=== PATIENT | female | born 1950 | race Caucasian/White ===

== ENCOUNTER → 2017-09-30 12:01 | Outpatient (CLI) | payer MEDICARE, OTHER, SELFPAY ==
--- NOTE | 2017-09-30 12:06 | RAD_ITS ---
STUDY: X-RAY - THORACIC SPINE REASON FOR EXAM: Female, 67 years old. Thoracic pain TECHNIQUE: 2 view(s) of the thoracic spine were obtained. COMPARISON: None. FINDINGS: Normal kyphosis of the thoracic spine. There is no substantial scoliosis. Normal thoracic vertebrae and endplates. Normal disc space heights. The soft tissue structures are unremarkable. RAD/Thoracic Spine 3 Views IMPRESSION: Normal x-ray examination of the thoracic spine. No fractures. No acute disease. Electronically Signed: Dyllan Herron, at 4:45 EDT Tel , Service support ,
== END ==
PROVIDERS: Family Provider Family Medicine Geriatric Medicine; PCP Family Medicine Geriatric Medicine; Visit Provider Family Medicine Geriatric Medicine
DX: M54.6 Pain in thoracic spine (principal)
CPT/HCPCS: 72072

== ENCOUNTER → 2017-12-30 15:23 | Outpatient (CLI) | payer MEDICARE, OTHER, SELFPAY ==
--- NOTE | 2017-12-30 15:20 | LES_PTH ---
PATIENT: EPIFANIO BARRIGA LOC: [facility] U#:[id number] AGE/SX: 74/F ROOM: RE12/30/[address]: Dr. Montana Aly MD : 1950 BED: DIS: SPEC #: [id number] RECD: 12/31/17 10:13 STATUS: RHEA EBER #: [id number] RADHA: 12/30/17 15:[address]: Montana Aly Chi DEPT: SURGICAL PATHOLOGY RECD BY: Andre Chavarria Tissues: Skin of knee, NOS Procedures: Surgery Specimen Level IV HEADER OPERATION: Not noted PRE-OP DIAGNOSIS: Left leg behind knee TISSUE SUBMITTED: Left back of knee x1 MICROSCOPIC DIAGNOSIS Left knee lesion, biopsy: Invasive well differentiated squamous cell carcinoma, keratoanthomatous type, narrowly excised. See comment. Perineural invasion is not seen. SJ:marianne 01/01/18 COMMENT The tumor is present very close, <1 mm from the deep resection margin. Case has been reviewed in consultation with Dr. Saleem who concurs with the above diagnosis. IDC:AM MICROSCOPIC DESCRIPTION Slides are reviewed. GROSS DESCRIPTION Received is one container labeled with the patient's name and not further designated. The specimen consists of a piece of hester-brown skin measuring 1.1 x 0.7 x 0.2 cm. A hester-white nodule is noted measuring 0.5 x 0.5 cm. The specimen is inked and submitted entirely in one cassette. It will be sectioned at the time of embedding. / SJ:rg 12/31/17 TC:0 CPT: 93258
[2017-12-30 17:41] LABS: Absolute Lymphocyte Count 2.95 X10^3/ul (0.83-4.51); Absolute Neutrophil Count 3.6 X10^3/uL (2.0-7.7); Basophil# 0.05 X10^3/uL; Basophil% 0.7 % (0-1); Eosinophil# 0.22 X10^3/uL; Eosinophils% 2.9 % (0-5); Hematocrit 41.9 % (37-47); Hemoglobin 13.7 g/dl (12.0-15.0); Lymphocyte # 2.95 X10^3/ul (4.0); Lymphocyte % 39.5 % (19-41); Mean Corp Hgb Conc 32.7 g/gl (32-36); Mean Corpuscular Hgb 31.9 pg (27.0-32.0); Mean Corpuscular Volume 97.7 fL (81-99); Mean Platelet Vol. 9.5 fl (6.2-12.0); Neutrophil # 3.64 X10^3/uL (2.7-7.7); Neutrophil % 48.8 % (47-70); Platelet Count 350 K/mm3 (150-450); RBC Distribution Width CV 13.3 % (11.6-14.6); RBC Distribution Width SD 47.2 fl (35.1-43.9); Red Blood Count 4.29 M/mm3 (4.2-5.4); White Blood Count 7.5 K/mm3 (4.4-11.0)
[2017-12-30 17:42] LABS: POSITIVE COUNT NO; POSITIVE DIFFERENTIAL NO; POSITIVE MORPHOLOGY NO; Vitamin D,25 Hydroxy 33.2 ng/mL (29.95-100.01)
[2017-12-30 17:45] LABS: ALB/GLOB Ratio 0.9 RATIO (0.9-2.4); AST(SGOT) 19 U/L (15-37); Alanine Aminotransfer ALT/SGPT 25 U/L (13-56); Albumin, Serum 3.8 g/dL (3.2-5.0); Alkaline Phosphatase 60 U/L (45-117); Anion Gap 7 (5-15); BUN 14 mg/dL (7-18); BUN/Creat Ratio 21.7 RATIO (10-20); Calcium,Total 8.5 mg/dL (8.5-10.1); Chloride 103 mmol/L (98-107); Creatinine, Serum 0.64 mg/dL (0.55-1.02); EST Glomerular Filtration Rate 98 mL/min (>60); Est Glom Filt Rate - Afr Amer 118 mL/min (>60); Globulin 4.1 g/dL (2.2-4.2); Glucose 88 mg/dL (74-106); Potassium 3.9 mmol/L (3.5-5.1); Protein, Total 7.9 g/dL (6.4-8.2); Sodium Level 140 mmol/L (136-145); Thyroid Stim Hormone (TSH) 2.93 uIU/mL (0.358-3.74)
[2018-01-01 11:36] LABS: Hep C Antibodies 0.1 s/co ratio (0.0-0.9)
== END ==
PROVIDERS: Family Provider Family Medicine Geriatric Medicine; PCP Family Medicine Geriatric Medicine; Visit Provider Family Medicine Geriatric Medicine
DX: C44.729 Squamous cell carcinoma of skin of left lower limb, including hip (principal); E55.9 Vitamin D deficiency, unspecified; R53.83 Other fatigue; Z13.89 Encounter for screening for other disorder; D17.9 Benign lipomatous neoplasm, unspecified
CPT/HCPCS: 36415; 80053; 82306; 84443; 85025; 86803; 88305

== ENCOUNTER → 2018-03-15 14:15 | Outpatient (CLI) | payer MEDICARE, OTHER, SELFPAY ==
[2018-03-19 15:05] LABS: Lyme IgG P18 Ab Absent (.); Lyme IgG P23 Ab Absent (.); Lyme IgG P28 Ab Absent (.); Lyme IgG P30 Ab Absent (.); Lyme IgG P39 Ab Absent (.); Lyme IgG P41 Ab Absent (.); Lyme IgG P45 Ab Absent (.); Lyme IgG P58 Ab Present (.); Lyme IgG P66 Ab Absent (.); Lyme IgG P93 Ab Present (.); Lyme IgM P23 Ab Present (.); Lyme IgM P39 Ab Absent (.); Lyme IgM P41 Ab Absent (.)
[2018-03-20 14:02] LABS: Lyme IgG WB Interpretation Negative (.); Lyme IgM WB Interpretation Negative (.)
== END ==
LOC: POLAB3 14:16 → PSN 14:28
PROVIDERS: Family Provider Family Medicine Geriatric Medicine; PCP Family Medicine Geriatric Medicine; Referring Provider Family Medicine Geriatric Medicine; Visit Provider Family Medicine Geriatric Medicine
DX: R50.9 Fever, unspecified (principal)
CPT/HCPCS: 36415; 86617; 87633

== ENCOUNTER → 2018-10-05 11:35 | Outpatient (CLI) | payer MEDICARE, OTHER, SELFPAY ==
[2017-10-08 10:15] VITALS: BMI 24.3
== END ==
PROVIDERS: Family Provider Family Medicine Geriatric Medicine; PCP Family Medicine Geriatric Medicine; Referring Provider Family Medicine Geriatric Medicine; Visit Provider Family Medicine Geriatric Medicine
DX: R50.9 Fever, unspecified (principal)
CPT/HCPCS: 87633

== ENCOUNTER → 2019-01-03 12:22 | Outpatient (CLI) | payer MEDICARE, OTHER, SELFPAY ==
[2019-01-03 12:38] LABS: Absolute Lymphocyte Count 2.66 X10^3/uL (0.83-4.51); Absolute Neutrophil Count 2.5 X10^3/uL (2.0-7.7); Basophil# 0.04 X10^3/uL; Basophil% 0.7 % (0-1); Eosinophil# 0.21 X10^3/uL; Eosinophils% 3.6 % (0-5); Hematocrit 42.9 % (37-47); Hemoglobin 14.1 g/dL (12.0-15.0); Lymphocyte # 2.66 X10^3/ul (4.0); Lymphocyte % 45.5 % (19-41); Mean Corp Hgb Conc 32.9 g/dL (32-36); Mean Corpuscular Hgb 31.8 pg (27.0-32.0); Mean Corpuscular Volume 96.8 fL (81-99); Mean Platelet Vol. 8.6 fl (6.2-12.0); Monocyte# 0.45 X10^3/uL; Monocyte% 7.7 % (0-10); NRBC Flagged by Analyzer 0 % (0-5); Neutrophil # 2.47 X10^3/uL (2.7-7.7); Neutrophil % 42.3 % (47-70); Platelet Count 325 K/mm3 (150-450); Red Blood Count 4.43 M/mm3 (4.2-5.4); White Blood Count 5.8 K/mm3 (4.4-11.0)
[2019-01-03 13:11] LABS: Vitamin D,25 Hydroxy 35.2 ng/mL (29.95-100.01)
[2019-01-03 13:21] LABS: ALB/GLOB Ratio 0.9 RATIO (0.9-2.4); AST(SGOT) 15 U/L (15-37); Alanine Aminotransfer ALT/SGPT 19 U/L (13-56); Albumin, Serum 3.7 g/dL (3.2-5.0); Alkaline Phosphatase 65 U/L (45-117); Anion Gap 7 (5-15); BUN 15 mg/dL (7-18); BUN/Creat Ratio 22.1 RATIO (10-20); Calcium,Total 8.9 mg/dL (8.5-10.1); Chloride 109 mmol/L (98-107); Creatinine, Serum 0.68 mg/dL (0.55-1.02); EST Glomerular Filtration Rate 91 mL/min (>60); Est Glom Filt Rate - Afr Amer 111 mL/min (>60); Globulin 4.2 g/dL (2.2-4.2); Glucose 93 mg/dL (74-106); Potassium 4.3 mmol/L (3.5-5.1); Protein, Total 7.9 g/dL (6.4-8.2); Sodium Level 143 mmol/L (136-145); Thyroid Stim Hormone (TSH) 2.55 uIU/mL (0.358-3.74)
== END ==
PROVIDERS: Family Provider Family Medicine Geriatric Medicine; PCP Family Medicine Geriatric Medicine; Visit Provider Family Medicine Geriatric Medicine
DX: I10 Essential (primary) hypertension (principal); E55.9 Vitamin D deficiency, unspecified
CPT/HCPCS: 36415; 80053; 82306; 84443; 85025

== ENCOUNTER → 2019-01-25 15:10 | Outpatient (CLI) | payer MEDICARE, OTHER, SELFPAY ==
--- NOTE | 2019-01-25 15:13 | BI_ITS ---
MAMMOGRAPHY - BILATERAL SCREENING REASON FOR EXAM: Female, 68 years old. Routine annual screening examination. PERTINENT HISTORY: Non-contributory. TECHNIQUE: Digital bilateral breast doni (3D mammographic acquisition) in the CC and MLO projections. 2-D mediolateral oblique (MLO) and craniocaudad (CC) views of both breasts were obtained. CAD: Full Field Digital Mammography with Computer Added Detection was performed. COMPARISON: Comparison is made with prior study dated June 22, 2014 and December 29, 2009. FINDINGS: Breast Composition: The breasts are heterogeneously dense, which may obscure small masses. There are no dominant masses or suspicious calcifications. No other significant abnormalities are identified. There has been no significant change since the prior study. BI/SCREEN MAMM (CAD) W/DONI BILAT IMPRESSION: Stable bilateral screening mammogram. Yearly follow-up mammogram recommended. (A) ASSESSMENT CATEGORY: BIRADS Category 1: Negative. A letter regarding these results will be sent to the patient by the facility within 30 days. Approximately 10% of breast cancers are not detected by mammography. A normal mammogram should not delay biopsy of a clinically suspicious abnormality. [id number] Electronically Signed: Yao Ji, at 16:01 EDT , Service support ,
== END ==
PROVIDERS: Family Provider Family Medicine Geriatric Medicine; PCP Family Medicine Geriatric Medicine; Referring Provider Family Medicine Geriatric Medicine; Visit Provider Family Medicine Geriatric Medicine
DX: Z12.31 Encounter for screening mammogram for malignant neoplasm of breast (principal); Z78.0 Asymptomatic menopausal state
CPT/HCPCS: 77063; 77067

== ENCOUNTER → 2020-03-26 16:02 | Outpatient (CLI) | payer MEDICARE, OTHER, SELFPAY ==
[2017-10-08 10:15] VITALS: BMI 24.3
[2020-03-26 17:01] LABS: Absolute Lymphocyte Count 2.78 X10^3/uL (0.83-4.51); Absolute Neutrophil Count 2.7 X10^3/uL (2.0-7.7); Basophil# 0.05 X10^3/uL; Basophil% 0.8 % (0-1); Eosinophil# 0.15 X10^3/uL; Eosinophils% 2.5 % (0-5); Hematocrit 40.6 % (37-47); Hemoglobin 13.2 g/dL (12.0-15.0); Lymphocyte # 2.78 X10^3/ul (4.0); Lymphocyte % 45.4 % (19-41); Mean Corp Hgb Conc 32.5 g/dL (32-36); Mean Corpuscular Volume 95.3 fL (81-99); Mean Platelet Vol. 9.1 fl (6.2-12.0); Monocyte# 0.48 X10^3/uL; Monocyte% 7.8 % (0-10); NRBC Flagged by Analyzer 0 % (0-5); Neutrophil # 2.65 X10^3/uL (2.7-7.7); Neutrophil % 43.3 % (47-70); Platelet Count 347 K/mm3 (150-450); RBC Distribution Width CV 12.2 % (11.6-14.6); RBC Distribution Width SD 42.5 fl (35.1-43.9); Red Blood Count 4.26 M/mm3 (4.2-5.4); White Blood Count 6.1 K/mm3 (4.4-11.0)
[2020-03-26 17:29] LABS: ALB/GLOB Ratio 0.9 RATIO (0.9-2.4); AST(SGOT) 19 U/L (15-37); Alanine Aminotransfer ALT/SGPT 29 U/L (13-56); Albumin, Serum 3.6 g/dL (3.2-5.0); Alkaline Phosphatase 82 U/L (45-117); Anion Gap 7 (5-15); BUN 19 mg/dL (7-18); BUN/Creat Ratio 26.1 RATIO (10-20); Calcium,Total 8.7 mg/dL (8.5-10.1); Chloride 104 mmol/L (98-107); Creatinine, Serum 0.73 mg/dL (0.55-1.02); EST Glomerular Filtration Rate 84 mL/min (>60); Est Glom Filt Rate - Afr Amer 102 mL/min (>60); Globulin 4.1 g/dL (2.2-4.2); Glucose 90 mg/dL (74-106); Potassium 3.8 mmol/L (3.5-5.1); Protein, Total 7.7 g/dL (6.4-8.2); Sodium Level 139 mmol/L (136-145); Thyroid Stim Hormone (TSH) 4.47 uIU/mL (0.358-3.74)
== END ==
PROVIDERS: PCP Family Medicine Geriatric Medicine; Visit Provider Family Medicine Geriatric Medicine
DX: I10 Essential (primary) hypertension (principal); E55.9 Vitamin D deficiency, unspecified
CPT/HCPCS: 36415; 80053; 82306; 84443; 85025

== ENCOUNTER 2020-04-02 14:53 | Emergency (ER) | payer MEDICARE, OTHER, SELFPAY ==
[2020-04-02 14:53] VITALS: BP 152/83; PULSE 93; RESP 22; TEMP 36.1; O2SAT 97; BMI 25.2
--- NOTE | 2020-04-02 16:40 | RAD_ITS ---
STUDY: X-RAY CHEST REASON FOR EXAM: Female, 69 years old. COUGH, SOB, CHEST PAIN AND CONGESTION TECHNIQUE: Single AP portable view of the chest. COMPARISON: 12/16/2013 FINDINGS: The lungs are clear and expanded. There is no demonstrated pleural abnormality. Normal size heart. Normal mediastinum and omari. Normal visualized pulmonary arteries. Normal visualized aortic arch and descending thoracic aorta. Normal visualized thoracic spine. Normal visualized ribs, clavicles, and shoulders. There is no demonstrated abnormality of the visualized soft tissue structures of the upper abdomen. RAD/Chest 1 View (Portable) IMPRESSION: Normal x-ray examination of the chest. Electronically Signed: Andre Frederick MD at 17:01 EST Tel , Service support ,
--- NOTE | 2020-04-02 16:41 | ED.VIS.GEN ---
History of Present Illness Chief Complaint: Shortness of Breath Informant: Patient Narrative: Patient states on Thursday she began to have a runny nose. She felt better on Thursday but today woke up feeling wheezing. She has had bronchitis intermittently in the past that has caused her to wheeze. Her tested negative for coronavirus and saw their PCP today was diagnosed with bronchitis. She denies any fevers. No rashes vomiting or diarrhea. No Known underlying lung conditions per the patient and she is a non-smoker. Past Medical History - Allergies and Home Meds Allergies/Adverse Reactions: Allergies No Known Allergies Allergy (Verified 03/01/16 11:34) Primary Care Physician: Montana Aly Chi, MD [Primary Care Provider] - Surgical History: noncontributory Lives: Spouse/ Significant Other Smoking Status: Former smoker Drugs: None Review of Systems General: Denies: Chills, Fever, Sweats Eyes: Denies: Visual changes - bilaterally, Diplopia ENT: Reports: Rhinorrhea. Denies: Sore throat Cardiovascular: Denies: Chest pain, Palpitations Respiratory: Reports: Dyspnea, Cough. Denies: Dyspnea on exertion Gastrointestinal: Denies: Abdominal pain, Nausea, Vomiting, Diarrhea, Melena, Hematochezia Genitourinary: Denies: Dysuria, Hematuria, Frequency Musculoskeletal: Denies: Back pain, Extremity Pain Skin: Denies: Rash, Wounds Neurological: Denies: Headache, Weakness, Numbness Physical Exam Vital Signs/Narrative: Vital Signs Temp Pulse Resp BP Pulse Ox 04/02/20 14:53 97 F L 93 22 H 152/83 H 97 Inital Vital Signs reviewed: Yes General: Well nourished, Well developed, No Acute Distress Head: Normocephalic, Atraumatic Eyes: Perrl, EOMI ENT: Moist mucous membranes, Nasal congestion Neck: Supple, Nontender Cardiovascular: Regular rate, Regular rhythm, No murmurs Respiratory: No distress, Chest nontender, Rhonchi, Wheezing Abdomen: Soft, Nontender, Nondistended, Normal bowel sounds Back: Nontender, Normal Inspection Extremities: Nontender, No edema Skin: Normal color, No rash Neurological: Alert, Oriented x3, Cranial nerves II-XII grossly intact, Normal Strength, Normal Sensation Psychological: Normal affect, Normal Mood Diagnostic/Tx/Re-eval - Medical Decision Making X-ray survey shows no obvious infiltrate. She received 2 DuoNeb's. Start her on an albuterol MDI, azithromycin, and a short course of prednisone. We swabbed her for coronavirus and respiratory panel. Follow-up with primary care if not improving ED Disposition - Plan for ED Patient: Disposition: Home or Assisted Living Diagnosis: Bronchitis, acute, with bronchospasm Instructions: Acute Bronchitis Prescriptions: predniSONE tablet 60 mg PO DAILY #15 tab Prescription Printed Albuterol Inhaler [Ventolin Hfa] 2 puff INHALATION Q4H PRN PRN #1 inhaler PRN Reason: Wheezing Prescription Printed Azithromycin [Zithromax Z-Romie] 250 mg PO UD #1 box Prescription Printed Referrals: Montana Aly Chi, MD [Primary Care Provider] - 1 Week if not improving
[2020-04-02 17:02] VITALS: BP 162/90; PULSE 85; RESP 18; TEMP 36.1; O2SAT 95
[2020-04-02] MEDS: Albuterol 2.5 MG/3 ML VIAL.NEB. INHALATION (17:03)
[2020-04-02] MEDS: Ipratropium/Albuterol Sulfate 3 ML AMPUL.NEB INHALATION (17:03)
== END 2020-04-02 17:22 | disposition home or self-care (01) ==
PROVIDERS: Emergency Provider Emergency Medicine; PCP Family Medicine Geriatric Medicine
DX: J20.9 Acute bronchitis, unspecified (principal); Z79.899 Other long term (current) drug therapy; Z87.891 Personal history of nicotine dependence
CPT/HCPCS: 71045; 87633; 87635; 99282; U0003

== ENCOUNTER → 2021-03-27 14:22 | Outpatient (CLI) | payer MEDICARE, OTHER, SELFPAY ==
[2021-03-27 17:31] LABS: Absolute Lymphocyte Count 2.76 X10^3/uL (0.83-4.51); Absolute Neutrophil Count 3.2 X10^3/uL (2.0-7.7); Basophil# 0.05 X10^3/uL; Basophil% 0.7 % (0-1); Eosinophil# 0.18 X10^3/uL; Eosinophils% 2.7 % (0-5); Hematocrit 40.8 % (37-47); Hemoglobin 13.4 g/dL (12.0-15.0); Lymphocyte # 2.76 X10^3/ul (0.83-4.51); Lymphocyte % 40.8 % (19-41); Mean Corp Hgb Conc 32.8 g/dL (32-36); Mean Corpuscular Hgb 31.5 pg (27.0-32.0); Mean Platelet Vol. 9.2 fl (6.2-12.0); Monocyte# 0.54 X10^3/uL; NRBC Flagged by Analyzer 0 % (0-5); Neutrophil # 3.22 X10^3/uL (2.7-7.7); Neutrophil % 47.5 % (47-70); Platelet Count 355 K/mm3 (150-450); RBC Distribution Width CV 12.3 % (11.6-14.6); RBC Distribution Width SD 43.2 fl (35.1-43.9); Red Blood Count 4.25 M/mm3 (4.2-5.4); White Blood Count 6.8 K/mm3 (4.4-11.0)
[2021-03-27 17:45] LABS: Vitamin D,25 Hydroxy 36.6 ng/mL
[2021-03-27 18:03] LABS: ALB/GLOB Ratio 0.8 RATIO (0.9-2.4); AST(SGOT) 20 U/L (15-37); Alanine Aminotransfer ALT/SGPT 39 U/L (13-56); Albumin, Serum 3.5 g/dL (3.2-5.0); Alkaline Phosphatase 78 U/L (45-117); Anion Gap 7 (5-15); BUN 17 mg/dL (7-18); BUN/Creat Ratio 23.9 RATIO (10-20); Chloride 104 mmol/L (98-107); Creatinine, Serum 0.71 mg/dL (0.55-1.02); EST Glomerular Filtration Rate 86 mL/min (>60); Est Glom Filt Rate - Afr Amer 104 mL/min (>60); Globulin 4.2 g/dL (2.2-4.2); Glucose 94 mg/dL (74-106); Potassium 3.9 mmol/L (3.5-5.1); Protein, Total 7.7 g/dL (6.4-8.2); Sodium Level 139 mmol/L (136-145); Thyroid Stim Hormone (TSH) 4.52 uIU/mL (0.358-3.74)
== END ==
PROVIDERS: PCP Family Medicine Geriatric Medicine; Visit Provider Family Medicine Geriatric Medicine
DX: I10 Essential (primary) hypertension (principal); E55.9 Vitamin D deficiency, unspecified
CPT/HCPCS: 36415; 80053; 82306; 84443; 85025

== ENCOUNTER → 2021-03-28 14:46 | Outpatient (CLI) | payer MEDICARE, OTHER, SELFPAY ==
--- NOTE | 2021-03-28 14:50 | BI_ITS ---
MAMMOGRAPHY - BILATERAL SCREENING REASON FOR EXAM: Female, 70 years old. Routine annual screening examination. PERTINENT HISTORY: Non-contributory. TECHNIQUE: Digital bilateral breast doni (3D mammographic acquisition) in the CC and MLO projections. 2-D mediolateral oblique (MLO) and craniocaudad (CC) views of both breasts were obtained. CAD: Full Field Digital Mammography with Computer Added Detection was performed. COMPARISON: Comparison is made with prior examination of 01/25/2019 and 06/22/2014. FINDINGS: Breast Composition: The breasts are heterogeneously dense, which may obscure small masses. There are no dominant masses or suspicious calcifications. Stable benign appearing bilateral axillary. No other significant abnormalities are identified. There has been no significant change since the prior study. BI/SCRN MAMM (CAD)W/DONI BILAT IMPRESSION: Stable bilateral screening mammogram. Yearly follow-up mammogram recommended. (A) ASSESSMENT CATEGORY: BIRADS Category 2: Benign. A letter regarding these results will be sent to the patient by the facility within 30 days. Approximately 10% of breast cancers are not detected by mammography. A normal mammogram should not delay biopsy of a clinically suspicious abnormality. [id number] Electronically Signed: Yao Ji MD at 15:35 EDT , Service support ,
== END ==
PROVIDERS: PCP Family Medicine Geriatric Medicine; Visit Provider Family Medicine Geriatric Medicine
DX: Z12.31 Encounter for screening mammogram for malignant neoplasm of breast (principal)
CPT/HCPCS: 77063; 77067

== ENCOUNTER → 2022-02-06 | Outpatient (CLI) | payer MEDICARE, OTHER, SELFPAY ==
--- NOTE | 2022-02-06 10:20 | RAD_ITS ---
EXAM: XR LEFT KNEE COMPLETE, 4 OR MORE VIEWS CLINICAL INDICATION: KNEE PAIN TECHNIQUE: Four or more views of the left knee. This report was created using [employer] report generation technology. COMPARISON: None. FINDINGS: BONES/JOINTS: Unremarkable. No acute fracture. No subluxation. Normal alignment. Preservation of the joint space. No sclerotic or destructive changes observed. SOFT TISSUES: Unremarkable. No soft tissue swelling or gas. No radiopaque foreign body. RAD/Knee 4 or More Views IMPRESSION: Negative left knee x-rays. Electronically Signed: Francisco Javier Chew MD at 2:53 EDT ,
== END | disposition home or self-care (01) ==
LOC: RAD 10:13
PROVIDERS: PCP Family Medicine Geriatric Medicine; Referring Provider Family Medicine Geriatric Medicine; Visit Provider Family Medicine Geriatric Medicine
DX: M25.562 Pain in left knee (principal)
CPT/HCPCS: 73564

== ENCOUNTER → 2022-02-14 | Outpatient (CLI) | payer MEDICARE, OTHER, SELFPAY | END | disposition home or self-care (01) | LOC: PSN 12:19 | PROVIDERS: PCP Family Medicine Geriatric Medicine; Referring Provider Family Medicine Geriatric Medicine; Visit Provider Family Medicine Geriatric Medicine | DX: R68.83 Chills (without fever) (principal) | CPT/HCPCS: 87635; 87804; 87807; C9803; U0003; U0005 ==

== ENCOUNTER → 2022-04-01 | Outpatient (CLI) | payer MEDICARE, OTHER, SELFPAY ==
[2022-04-01 17:19] LABS: Absolute Lymphocyte Count 3.29 X10^3/uL (0.83-4.51); Basophil# 0.03 X10^3/uL; Basophil% 0.4 % (0-1); Eosinophil# 0.17 X10^3/uL; Eosinophils% 2.1 % (0-5); Hematocrit 41.1 % (37-47); Hemoglobin 13.4 g/dL (12.0-15.0); Lymphocyte # 3.29 X10^3/ul (0.83-4.51); Lymphocyte % 40.2 % (19-41); Mean Corp Hgb Conc 32.6 g/dL (32-36); Mean Corpuscular Hgb 30.9 pg (27.0-32.0); Mean Corpuscular Volume 94.9 fL (81-99); Mean Platelet Vol. 9.4 fl (6.2-12.0); Monocyte# 0.65 X10^3/uL; Monocyte% 7.9 % (0-10); NRBC Flagged by Analyzer 0 % (0-5); Neutrophil # 4.02 X10^3/uL (2.7-7.7); Neutrophil % 49.2 % (47-70); Platelet Count 387 K/mm3 (150-450); RBC Distribution Width CV 12.8 % (11.6-14.6); Red Blood Count 4.33 M/mm3 (4.2-5.4); White Blood Count 8.2 K/mm3 (4.4-11.0)
[2022-04-01 17:34] LABS: Vitamin D,25 Hydroxy 37.6 ng/mL
[2022-04-01 17:49] LABS: ALB/GLOB Ratio 0.9 RATIO (0.9-2.4); AST(SGOT) 14 U/L (15-37); Alanine Aminotransfer ALT/SGPT 29 U/L (13-56); Albumin, Serum 3.5 g/dL (3.2-5.0); Alkaline Phosphatase 62 U/L (45-117); Anion Gap 8 (5-15); BUN 20 mg/dL (7-18); BUN/Creat Ratio 32.9 RATIO (10-20); Calcium,Total 8.4 mg/dL (8.5-10.1); Chloride 105 mmol/L (98-107); Creatinine, Serum 0.61 mg/dL (0.55-1.02); EST Glomerular Filtration Rate 103 mL/min (>60); Est Glom Filt Rate - Afr Amer 125 mL/min (>60); Glucose 91 mg/dL (74-106); Potassium 3.9 mmol/L (3.5-5.1); Protein, Total 7.5 g/dL (6.4-8.2); Sodium Level 140 mmol/L (136-145); Thyroid Stim Hormone (TSH) 4.69 uIU/mL (0.358-3.74)
== END | disposition home or self-care (01) ==
LOC: POLAB3 14:20
PROVIDERS: PCP Family Medicine Geriatric Medicine; Visit Provider Family Medicine Geriatric Medicine
DX: R53.83 Other fatigue (principal); E55.9 Vitamin D deficiency, unspecified
CPT/HCPCS: 36415; 80053; 82306; 84443; 85025

== ENCOUNTER → 2022-06-18 | Outpatient (CLI) | payer MEDICARE, OTHER, SELFPAY ==
[2022-06-18 17:57] LABS: Thyroid Stim Hormone (TSH) 2.62 uIU/mL (0.358-3.74)
== END | disposition home or self-care (01) ==
LOC: LAB.FUTURE 16:07 → POLAB3 16:08
PROVIDERS: PCP Family Medicine Geriatric Medicine; Visit Provider Family Medicine Geriatric Medicine
DX: E03.9 Hypothyroidism, unspecified (principal)
CPT/HCPCS: 36415; 84443

== ENCOUNTER → 2022-10-07 | Outpatient (CLI) | payer MEDICARE, OTHER, SELFPAY | END | disposition home or self-care (01) | PROVIDERS: PCP Family Medicine Geriatric Medicine; Referring Provider Family Medicine Geriatric Medicine; Visit Provider Family Medicine Geriatric Medicine | DX: R68.83 Chills (without fever) (principal); Z20.822 Contact with and (suspected) exposure to COVID-19 | CPT/HCPCS: 87635; 87804; 87807; C9803; U0005 ==

== ENCOUNTER → 2023-04-09 | Outpatient (CLI) | payer MEDICARE, OTHER, SELFPAY ==
[2023-04-09 14:54] LABS: Absolute Lymphocyte Count 3.29 X10^3/uL (0.83-4.51); Basophil# 0.04 X10^3/uL; Basophil% 0.5 % (0-1); Eosinophil# 0.11 X10^3/uL; Eosinophils% 1.4 % (0-5); Hematocrit 41.7 % (37-47); Hemoglobin 13.4 g/dL (12.0-15.0); Lymphocyte # 3.29 X10^3/ul (0.83-4.51); Mean Corp Hgb Conc 32.1 g/dL (32-36); Mean Corpuscular Hgb 31.1 pg (27.0-32.0); Mean Corpuscular Volume 96.8 fL (81-99); Mean Platelet Vol. 8.9 fl (6.2-12.0); Monocyte% 7.5 % (0-10); NRBC Flagged by Analyzer 0 % (0-5); Neutrophil # 3.97 X10^3/uL (2.7-7.7); Neutrophil % 49.4 % (47-70); Platelet Count 373 K/mm3 (150-450); RBC Distribution Width CV 12.5 % (11.6-14.6); RBC Distribution Width SD 44.9 fl (35.1-43.9); Red Blood Count 4.31 M/mm3 (4.2-5.4)
[2023-04-09 15:16] LABS: ALB/GLOB Ratio 0.9 RATIO (0.9-2.4); AST(SGOT) 16 U/L (15-37); Alanine Aminotransfer ALT/SGPT 26 U/L (13-56); Albumin, Serum 3.6 g/dL (3.2-5.0); Alkaline Phosphatase 65 U/L (45-117); Anion Gap 5 (5-15); BUN 19 mg/dL (7-18); BUN/Creat Ratio 25.8 RATIO (10-20); Chloride 107 mmol/L (98-107); Creatinine, Serum 0.74 mg/dL (0.55-1.02); EST Glomerular Filtration Rate 82 mL/min (>60); Est Glom Filt Rate - Afr Amer 100 mL/min (>60); Globulin 4.2 g/dL (2.2-4.2); Glucose 96 mg/dL (74-106); Potassium 3.7 mmol/L (3.5-5.1); Protein, Total 7.8 g/dL (6.4-8.2); Sodium Level 141 mmol/L (136-145)
[2023-04-09 15:39] LABS: Vitamin D,25 Hydroxy 52.3 ng/mL
== END | disposition home or self-care (01) ==
PROVIDERS: PCP Family Medicine Geriatric Medicine; Visit Provider Family Medicine Geriatric Medicine
DX: R53.83 Other fatigue (principal); E55.9 Vitamin D deficiency, unspecified
CPT/HCPCS: 36415; 80053; 82306; 84443; 85025

== ENCOUNTER 2024-12-29 15:10 | Emergency (ER) | payer MEDICARE, OTHER, SELFPAY ==
[2024-12-29 15:10] VITALS: BP 125/72; PULSE 82; RESP 18; TEMP 36.3; O2SAT 98; BMI 21.7
--- OUTSIDE RECORDS SUMMARY | 2024-12-29 18:00 | XMS RPT_ITS | CCD ---
Author Organization [facility] Inform ion Partnership [facility] Care Team Providers Care Office Agent Name Role Phone Jermain, [place] Chi Attending Unavailable Jermain, [place] Chi Primary Care Unavailable Jermain, [place] Chi Referring Unavailable Jermain, [place] Chi Attending Unavailable Jermain, [place] Chi Primary Care Unavailable Jermain, [place] Chi Primary Care Unavailable Jermain, [place] Chi Attending Unavailable Medications Current Medications Medication Drug Class(es) Dates Sig (Normalized) Sig (Original) [id number] 200 actuat albuterol 0.09 mg/actuat metered dose inhaler (3 sources) beta2-Adrenergic Agonist Start: 04-02-2020 take 1 puff(s) by inhalation every four hours as needed Albuterol Sulfate Active 2 PUFF INHALATION EVERY 4 HOURS NEEDED April 02, 2020 12:00am with spacer azithromycin 250 mg oral tablet (3 sources) Macrolide Antimicrobial Start: 04-02-2020 take 2 tablets by mouth once daily, then take 1 tablet by mouth once daily Azithromycin Active 250 MG PO DIRECTED April 02, 2020 12:00am TAKE 2 TABLETS 1ST DAY THEN 1 TABLET DAILY FOR NEXT 4 DAYS. calcium carbonate 1250 mg / cholecalciferol 0.01 mg chewable tablet (3 sources) Vitamin D Start: 03-01-2016 Calcium Carbonate-Vitamin D3 (Calcium 500+D Tablet Chew) 1 EACH tablet,chewable Active 1 TABLET PO DAILY February 29, 2016 11:00pm Coconut Oil (3 sources) Start: 04-02-2020 Coconut Oil (Bulk) Active 100 GM MC DAILY April 02, 2020 12:00am Start: 04-02-2020 Coconut Oil (B ulk) Active 100 GM MC DAILY April 02, 2020 1:00am FLUoxetine 10 mg oral capsule (3 sources) Serotonin Reuptake Inhibitor Start: 03-01-2016 take 10 mg by mouth once daily Fluoxetine Active 10 MG PO DAILY February 29, 2016 11:00pm levothyroxine sodium 0.1 mg oral tablet (3 sources) l-Thyroxine Start: 03-01-2016 take 100 ug by mouth once daily Levothyroxine Active 100 MCG PO DAILY February 29, 2016 11:00pm pravastatin sodium 40 mg oral tablet (3 sources) HMG-CoA Reductase Inhibitor Start: 03-01-2016 take 40 mg by mouth at bedtime Pravastatin Active 40 MG PO AT BEDTIME February 29, 2016 11:00pm predniSONE 20 mg oral tablet (3 sources) Start: 04-02-2020 take 60 mg by mouth once daily Prednisone Active 60 MG PO DAILY April 02, 2020 12:00am Completed/Discontinued Medications Medication Drug Class(es) Dates Sig (Normalized) Sig (Original) amoxicillin 875 mg / clavulanate 125 mg oral tablet (3 sources) Penicillin-class Antibacterial Start: 03-01-2016 End: 10-08-2017 take 875 mg by mouth every twelve hours Amoxicillin-Pot Clavulanate Discontinued 875 MG PO Q12H February 29, 2016 11:00pm October 08, 2017 9:16am Problems Active Problems Problem Classification Problem Date Documented Da te Episodic/Chronic Acute bronchitis (3 sources) Acute bronchitis with bronchospasm; Translations: [Acute bronchitis, unspecified] 04-03-2020 Episodic Malaise and fatigue (1 source) Other fatigue; Translations: [Other fatigue] Onset: 04-15-2023 Episodic Other bone disease and musculoskeletal deformities (3 sources) Segmental and somatic dysfunction; Translations: [Segmental and somatic dysfunction of thoracic region] 10-08-2017 Episodic Thyroid disorders (1 source) Hypothyroidism, unspecified; Translations: [Hypothyroidism, unspecified] Onset: 07-01-2022 Chronic Past or Other Problems Problem Classification Problem Date Documented Da te Episodic/Chronic Residual codes; unclassified (1 source) Chills (without fever); Translations: [Chills (without fever)] Onset: 10-13-2022 Episodic Results Test Name Value Interpretation Reference Range Facility Absolute lymphocyte countOrd ered By: [place] Aly on 04-09-2023 Lymphocytes Auto (Unsp spec) [#/Vol] 3.29 10*3/uL 0.83-4.51 [facility] Basophil percentageOrdered B y: [place] Aly on 04-09-2023 Basophils/100 WBC (Bld) 0.5 % 0-1 [facility] Bilirubin [Mass/Vol] 0.70 mg/dL 0.20-1.00 [facility] Comment on above: For patients on eltr ombopag therapy, use of Dimension [place] TBIL is not recommended. Chloride [Moles/Vol] 107 mmol/L 98-107 [facility] Eosinophils/100 WBC (Bld) 1.4 % 0-5 [facility] Glucose [Mass/Vol] 96 mg/dL 74-106 [facility] Neutrophils (Bld) [#/Vol] 4.0 10*3/uL 2.0-7.7 [facility] Neutrophils/100 WBC (Bld) 49.4 % 47-70 [facility] Potassium [Moles/Vol] 3.7 mmol/L 3.5-5.1 [facility] Protein [Mass/Vol] 7.8 g/dL 6.4-8.2 [facility] Sodium [Moles/Vol] 141 mmol/L 136-145 [facility] WBC (Bld) [#/Vol] 8.0 10*3/uL 4.4-11.0 [facility] Blood erythrocytes count (nu mber/volume)Ordered By: [place] Aly on 04-09-2023 RBC (Bld) [#/Vol] 4.31 10*6/uL 4.2-5.4 [facility] Blood hemoglobin measurement (mass/volume)Ordered By: [place] Aly on 04-09-2023 Hemoglobin (Bld) [Mass/Vol] 13.4 g/dL 12.0-15.0 [facility] Blood lymphocytes/100 leukoc ytesOrdered By: [place] Aly on 04-09-2023 Lymphocytes/100 WBC (Bld) 41.0 % 19-41 [facility] Blood monocytes/100 leukocyt esOrdered By: Montana Palmerok on 04-09-2023 Monocytes/100 WBC (Bld) 7.5 % 0-10 [facility] Blood platelet mean volumeOr dered By: [place] Aly on 04-09-2023 Platelet mean volume (Bld) [Entitic vol] 8.9 fL 6.2-12.0 [facility] CBC W/Diff, Automatedon 03-25 Absolute Lymph 3.29 X10 3/uL Normal 0.83-4.51 [facility] Comment on above: Performed By: #### L 506.1000, L501.9520, L500.4050, L100.0100 #### [facility] [address] [place], [address] Absolute Neut 4.0 X10 3/uL Normal 2.0-7.7 [facility] Comment on above: Performed By: #### L 506.1000, L501.9520, L500.4050, L100.0100 #### [facility] [address] [place], [address] Basophils/100 WBC (Bld) 0.5 % Normal 0-1 [facility] Comment on above: Performed By: #### L 506.1000, L501.9520, L500.4050, L100.0100 #### [facility] [address] [place], [address] Eosinophils/100 WBC (Bld) 1.4 % Normal 0-5 [facility] Comment on above: Performed By: #### L 506.1000, L501.9520, L500.4050, L100.0100 #### [facility] [address] [place], [address] Erythrocyte distribution width (RBC) [Ratio] 12.5 % Normal 11.6-14.6 [facility] Comment on above: Performed By: #### L 506.1000, [id number], L500.4050, L100.0100 #### [facility] [address] [place], [address] Hematocrit (Bld) [Volume fraction] 41.7 % Normal 37-47 [facility] Comment on above: Performed By: #### L 506.1000, L501.9520, L500.4050, L100.0100 #### [facility] [address] [place], [address] Hemoglobin (Bld) [Mass/Vol] 13.4 g/dL Normal 12.0-15.0 [facility] Comment on above: Performed By: #### L 506.1000, L501.9520, L500.4050, L100.0100 #### [facility] [address] [place], [address] IG% 0.200 Normal 0.0-0.9 [facility] Comment on above: Result Comment: IG% - Immature Granulocytes (promyelocytes, myelocytes and metamyelocytes) > 1% indicates that a LEFT SHIFT is Present. Performed By: #### L 506.1000, L501.9520, L500.4050, L100.0100 #### [facility] [address] [place], [address] Lymphocytes/100 WBC (Bld) 41.0 % Normal 19-41 [facility] Comment on above: Performed By: #### L 506.1000, [id number], L500.4050, L100.0100 #### [facility] [address] [place], [address] MCH (RBC) [Entitic mass] 31.1 pg Normal 27.0-32.0 [facility] Comment on above: Performed By: #### L 506.1000, [id number], L500.4050, L100.0100 #### [facility] [address] [place], [address] MCHC (RBC) [Mass/Vol] 32.1 g/dL Normal 32-36 [facility] Comment on above: Performed By: #### L 506.1000, L501.9520, L500.4050, L100.0100 #### [facility] [address] [place], [address] MCV (RBC) [Entitic vol] 96.8 fL Normal 81-99 [facility] Comment on above: Performed By: #### L 506.1000, [id number], L500.4050, L100.0100 #### [facility] [address] [place], [address] Monocytes/100 WBC (Bld) 7.5 % Normal 0-10 [facility] Comment on above: Performed By: #### L 506.1000, [id number], L500.4050, L100.0100 #### [facility] [address] [place], [address] Neutrophils/100 WBC (Bld) 49.4 % Normal 47-70 [facility] Comment on above: Performed By: #### L 506.1000, [id number], L500.4050, L100.0100 #### [facility] [address] [place], [address] Nucleated RBC (Bld) [#/Vol] 0 10*3/uL Normal 0-5 [facility] Comment on above: Performed By: #### L 506.1000, L501.9520, L500.4050, L100.0100 #### [facility] [address] [place], [address] Platelet mean volume (Bld) [Entitic vol] 8.9 fL Normal 6.2-12.0 [facility] Comment on above: Performed By: #### L 506.1000, L501.9520, L500.4050, L100.0100 #### [facility] [address] [place], [address] Platelets (Bld) [#/Vol] 373 10*3/uL Normal 150-450 [facility] Comment on above: Performed By: #### L 506.1000, [id number], L500.4050, L100.0100 #### [facility] [address] [place], [address] RBC (Bld) [#/Vol] 4.31 10*6/uL Normal 4.2-5.4 [facility] Comment on above: Performed By: #### L 506.1000, [id number], L500.4050, L100.0100 #### [facility] [address] [place], [address] RDW SD 44.9 fl High 35.1-43.9 [facility] Comment on above: Performed By: #### L 506.1000, [id number], L500.4050, L100.0100 #### [facility] [address] [place], [address] WBC (Bld) [#/Vol] 8.0 10*3/uL Normal 4.4-11.0 [facility] Comment on above: Performed By: #### L 506.1000, [id number], L500.4050, L100.0100 #### [facility] [address] [facility] [place], [address] Comprehensive Metabolic [facility] 04-09-2023 Albumin [Mass/Vol] 3.6 g/dL Normal 3.2-5.0 [facility] Comment on above: Performed By: #### L 506.1000, [id number], L500.4050, L100.0100 #### [facility] [address] [place], [address] Albumin/Globulin [Mass ratio] 0.9 {ratio} Normal 0.9-2.4 [facility] Comment on above: Performed By: #### L 506.1000, [id number], L500.4050, L100.0100 #### [facility] [address] [place], [address] ALK P 65 U/L Normal 45-117 [facility] Comment on above: Performed By: #### L 506.1000, [id number], L500.4050, L100.0100 #### [facility] [address] [place], [address] ALT [Catalytic activity/Vol] 26 U/L Normal 13-56 [facility] Comment on above: Performed By: #### L 506.1000, [id number], L500.4050, L100.0100 #### [facility] [address] [place], [address] AST [Catalytic activity/Vol] 16 U/L Normal 15-37 [facility] Comment on above: Performed By: #### L 506.1000, [id number], L500.4050, L100.0100 #### [facility] [address] [place], [address] Bilirubin [Mass/Vol] 0.70 mg/dL Normal 0.20-1.00 [facility] Comment on above: Result Comment: For patients on eltrombopag therapy, use of Dimension [place] TBIL is not recommended. Performed By: #### L 506.1000, L501.9520, L500.4050, L100.0100 #### [facility] [address] [place], [address] BUN/CRE 25.8 RATIO High 10-20 [facility] Comment on above: Performed By: #### L 506.1000, [id number], L500.4050, L100.0100 #### [facility] [address] [place], [address] CA,Total 9.0 mg/dL Normal 8.5-10.1 [facility] Comment on above: Performed By: #### L 506.1000, [id number], L500.4050, L100.0100 #### [facility] [address] [place], [address] Chloride [Moles/Vol] 107 mmol/L Normal 98-107 [facility] Comment on above: Performed By: #### L 506.1000, [id number], L500.4050, L100.0100 #### [facility] [address] [place], [address] CO2 [Moles/Vol] 29.0 mmol/L Normal 21.0-32.0 [facility] Comment on above: Performed By: #### L 506.1000, L501.9520, L500.4050, L100.0100 #### [facility] [address] [place], [address] Creatinine [Mass/Vol] 0.74 mg/dL Normal 0.55-1.02 [facility] Comment on above: Result Comment: The validity of the calculated GFR GFRAA in patients over 70 years has not been determined. Clinical correlation is essential. Performed By: #### L 506.1000, L501.9520, L500.4050, L100.0100 #### [facility] [address] [place], [address] EST GFR - AA 100 mL/min Normal >60 [facility] Comment on above: Result Comment: Afri can French GFR Calc Performed By: #### L 506.1000, L501.9520, L500.4050, L100.0100 #### [facility] [address] [place], [address] GAP 5 Normal 5-15 [facility] Comment on above: Performed By: #### L 506.1000, L501.9520, L500.4050, L100.0100 #### [facility] [address] [place], [address] GFR/1.73 sq M.predicted among non-blacks MDRD (S/P/Bld) [Vol rate/Area] 82 mL/min/{1.73_m2} Normal >60 [facility] Comment on above: Result Comment: Non- GFR Calc Performed By: #### L 506.1000, L501.9520, L500.4050, L100.0100 #### [facility] [address] [place], [address] Globulin (S) [Mass/Vol] 4.2 g/dL Normal 2.2-4.2 [facility] Comment on above: Performed By: #### L 506.1000, L501.9520, L500.4050, L100.0100 #### [facility] [address] [place], [address] Glucose [Mass/Vol] 96 mg/dL Normal 74-106 [facility] Comment on above: Performed By: #### L 506.1000, L501.9520, L500.4050, L100.0100 #### [facility] [address] [place], [address] Potassium [Moles/Vol] 3.7 mmol/L Normal 3.5-5.1 [facility] Comment on above: Performed By: #### L 506.1000, L501.9520, L500.4050, L100.0100 #### [facility] [address] [place], [address] Sodium [Moles/Vol] 141 mmol/L Normal 136-145 [facility] Comment on above: Performed By: #### L 506.1000, L501.9520, L500.4050, L100.0100 #### [facility] [address] [place], [address] T PROT 7.8 g/dL Normal 6.4-8.2 [facility] Comment on above: Performed By: #### L 506.1000, L501.9520, L500.4050, L100.0100 #### [facility] [address] [place], [address] Urea nitrogen [Mass/Vol] 19 mg/dL High 7-18 [facility] Comment on above: Performed By: #### L 506.1000, L501.9580, L500.4050, L100.0100 #### [facility] [address] [place], [address] Determination of erythrocyte mean corpuscular volume (MCV)Ordered By: [place] Jermain on 04-09-2023 MCV (RBC) [Entitic vol] 96.8 fL 81-99 [facility] Hematocrit Auto (Bld) [Volum e fraction]Ordered By: [facility] on 04-09-2023 Hematocrit (Bld) [Volume fraction] 41.7 % 37-47 [facility] - Chemistry and C hemistry - challengeOrdered By: [facility] ALP [Catalytic activity/Vol] 65 U/L 45-117 [facility] ALT [Catalytic activity/Vol] 26 U/L 13-56 [facility] CO2 [Moles/Vol] 29.0 mmol/L 21.0-32.0 [facility] Globulin (S) [Mass/Vol] 4.2 g/dL 2.2-4.2 [facility] Urea nitrogen/Creatinine [Mass ratio] 25.8 mg/mg 10-20 [facility] - Hematology and Cell countsOrdered By: [facility]23 Erythrocyte distribution width (RBC) [Entitic vol] 44.9 fL 35.1-43.9 [facility] Erythrocyte distribution width (RBC) [Ratio] 12.5 % 11.6-14.6 [facility] Immature granulocytes/100 WBC (Bld) 0.200 % 0.0-0.9 [facility] Comment on above: IG% - Immature Granu locytes (promyelocytes, myelocytes and metamyelocytes) > 1% indicates that a LEFT SHIFT is Present. MCH (RBC) [Entitic mass] 31.1 pg 27.0-32.0 [facility] Nucleated RBC/100 WBC (Bld) [Ratio] 0 % 0-5 [facility] MCHC Auto (RBC) [Mass/Vol]Or dered By: [place] Aly on 04-09-2023 MCHC (RBC) [Mass/Vol] 32.1 g/dL 32-36 [facility] No Panel InformationOrdered By: [place] Aly on 04-09-2023 Estimated GFR (MDRD) Amer 100 mL/min >60 [facility] Comment on above: GFR Calc Estimated GFR (MDRD) Non-Af Amer 82 mL/min >60 [facility] Comment on above: Non- GFR Calc Thyroid Stimulating Hormone (TSH) 2.10 uIU/mL 0.358-3.74 [facility] Vitamin D 25-Hydroxy 52.3 ng/mL [facility] Comment on above: Vitamin D 25(OH) Sta tus Range Deficiency <20 ng/mL (50nmol/L) Insufficiency 20 - 30 ng/mL (50 - 75 nmol/L) Sufficiency 30 - 100 ng/mL (75 - 250 nmol/L) Toxicity >100 ng/mL (>250 nmol/L) Platelets bldOrdered By: [place] Aly on 04-09-2023 Platelets (Bld) [#/Vol] 373 10*3/uL 150-450 [facility] Serum or plasma albumin rowena urement (mass/volume)Ordered By: [place] Aly on 04-09-2023 Albumin [Mass/Vol] 3.6 g/dL 3.2-5.0 [facility] Serum or plasma albumin/glob ulin mass ratioOrdered By: [place] Aly on 04-09-2023 Albumin/Globulin [Mass ratio] 0.9 {ratio} 0.9-2.4 [facility] Serum or plasma calcium rowena urement (mass/volume)Ordered By: [place] Aly on 04-09-2023 Calcium [Mass/Vol] 9.0 mg/dL 8.5-10.1 [facility] Serum or plasma creatinine m easurement (mass/volume)Ordered By: [place] Aly 04-09-2023 Creatinine [Mass/Vol] 0.74 mg/dL 0.55-1.02 [facility] Comment on above: The validity of the calculated GFR & GFRAA in patients over 70 years has not been determined. Clinical correlation is essential. Serum or plasma urea nitroge n measurement (mass/volume)Ordered By: [place] Aly on 04-09-2023 Urea nitrogen [Mass/Vol] 19 mg/dL 7-18 [facility] Thin prep Papanicolaou smear with manual screeningOrdered By: [place] Jermain on 04-09-2023 Thin prep Papanicolaou smear with manual screening 16 U/L 15-37 [facility] Thin prep Papanicolaou smear with manual screening 5 5-15 [facility] Thyroid Stim Hormone (TSH)on 04-09-2023 TSH 2.10 uIU/mL Normal 0.358-3.74 [facility] Comment on above: Performed By: #### L 506.1000, L501.9520, L500.4050, L100.0100 #### [facility] [address] [place], [address] Vitamin D,25 Hydroxyon 04-09 Vitamin D 25-OH 52.3 ng/mL Normal [facility] Comment on above: Result Comment: Norma min D 25(OH) Status Range Deficiency <20 ng/mL (50nmol/L) Insufficiency 20 - 30 ng/mL (50 - 75 nmol/L) Sufficiency 30 - 100 ng/mL (75 - 250 nmol/L) Toxicity >100 ng/mL (>250 nmol/L) Performed By: #### L 506.1000, L501.9520, L500.4050, L100.0100 #### [facility] [address] [place], [place], [address] COVID 19, [facility](RT COLLECT )on 10-07-2022 SARS-CoV-2 (COVID-19) RNA SANDY+probe Ql (Unsp spec) Not detected Normal Not Detect [facility] Comment on above: Result Comment: Norm al Reference Range: Not Detected Method:(RT-PCR) real-time reverse transcriptase PCR [employer] Instrument *The Food and Drug Administration (FDA) has issued an Emergency Use Authorization (EAU) for the [employer] SARS-CoV-2 Assay for the rapid detection of the virus that causes COVID-19. This test has been validated, but the FDAs independent review of this validation is pending. *Negative results do not preclude infection and should not be used as the sole basis for treatment or patient management. Optimum specimen types and timing for peak viral levels during infections caused by SARS-CoV-2 have not been determined. Collection of multiple specimens from the same patient may be necessary to detect the virus. The possibility of a false negative result should be considered if the patient has clinical presentation or has had recent exposure. Performed By: #### M 100.6601, L3400.2405, M101.0101 #### [facility] [address] [place], [address] Influenza A+B (Rapid RUFINA)on 10-07-2022 FLU Negative test results should be confirmed with FLU PANEL MOLECULAR if indicated. Influenza A+B (Rapid RUFINA) Normal Reference Range: Negative Neha, RUFINA method Influenza Ag, Direct Presumptive NEGATIVE for Influenza A/B Antigen (See Note) Normal [facility] Comment on above: Performed By: #### M 100.6601, L3400.2405, M101.0101 #### [facility] [address] [place], [address] RSV Ag (Rapid RUFINA)on 023 RSV Ag (RUFINA) Normal Reference Range: Negative Neha, RUFINA method RSV Ag A POSITIVE A RSV Antigen Normal [facility] Comment on above: Performed By: #### M 100.6601, L3400.2405, M101.0101 #### [facility] [address] [place], [address] Thyroid Stim Hormone (TSH)on 06-18-2022 TSH 2.62 uIU/mL Normal 0.358-3.74 [facility] Comment on above: Performed By: #### L 501.9520 #### [facility] [address] [place], [address] Absolute lymphocyte counton 04-01-2022 Lymphocytes Auto (Unsp spec) [#/Vol] 3.29 10*3/uL 0.83-4.51 [facility] Work Phone: Basophil percentageon 2021 Basophils/100 WBC (Bld) 0.4 % 0-1 [facility] Work Phone: Bilirubin [Mass/Vol] 0.40 mg/dL 0.20-1.00 [facility] Work Phone: Comment on above: For patients on eltr ombopag therapy, use of Dimension [place] TBIL is not recommended. Chloride [Moles/Vol] 105 mmol/L 98-107 [facility] Work Phone: Eosinophils/100 WBC (Bld) 2.1 % 0-5 [facility] Work Phone: Glucose [Mass/Vol] 91 mg/dL 74-106 [facility] Work Phone: Neutrophils (Bld) [#/Vol] 4.0 10*3/uL 2.0-7.7 [facility] Work Phone: Neutrophils/100 WBC (Bld) 49.2 % 47-70 [facility] Work Phone: Potassium [Moles/Vol] 3.9 mmol/L 3.5-5.1 [facility] Work Phone: Protein [Mass/Vol] 7.5 g/dL 6.4-8.2 [facility] Work Phone: Sodium [Moles/Vol] 140 mmol/L 136-145 [facility] Work Phone: WBC (Bld) [#/Vol] 8.2 10*3/uL 4.4-11.0 [facility] Work Phone: Blood erythrocytes count (nu mber/volume)on 04-01-2022 RBC (Bld) [#/Vol] 4.33 10*6/uL 4.2-5.4 [facility] Work Phone: Blood hemoglobin measurement (mass/volume)on 04-01-2022 Hemoglobin (Bld) [Mass/Vol] 13.4 g/dL 12.0-15.0 [facility] Work Phone: Blood lymphocytes/100 leukoc yteson 04-01-2022 Lymphocytes/100 WBC (Bld) 40.2 % 19-41 [facility] Work Phone: Blood monocytes/100 leukocyt eson 04-01-2022 Monocytes/100 WBC (Bld) 7.9 % 0-10 [facility] Work Phone: Blood platelet mean volumeon 04-01-2022 Platelet mean volume (Bld) [Entitic vol] 9.4 fL 6.2-12.0 [facility] Work Phone: Determination of erythrocyte mean corpuscular volume (MCV)on 04-01-2022 MCV (RBC) [Entitic vol] 94.9 fL 81-99 [facility] Work Phone: Hematocrit Auto (Bld) [Volum e fraction]on 04-01-2022 Hematocrit (Bld) [Volume fraction] 41.1 % 37-47 [facility] Work Phone: Laboratory - Chemistry and C hemistry - challengeon 04-01-2022 ALP [Catalytic activity/Vol] 62 U/L 45-117 [facility] Work Phone: ALT [Catalytic activity/Vol] 29 U/L 13-56 [facility] Work Phone: CO2 [Moles/Vol] 27.0 mmol/L 21.0-32.0 [facility] Work Phone: Globulin (S) [Mass/Vol] 4.0 g/dL 2.2-4.2 [facility] Work Phone: Urea nitrogen/Creatinine [Mass ratio] 32.9 mg/mg 10-20 [facility] Work Phone: Laboratory - Hematology and Cell countson 04-01-2022 Erythrocyte distribution width (RBC) [Entitic vol] 45.0 fL 35.1-43.9 [facility] Work Phone: Erythrocyte distribution width (RBC) [Ratio] 12.8 % 11.6-14.6 [facility] Work Phone: Immature granulocytes/100 WBC (Bld) 0.200 % 0.0-0.9 [facility] Work Phone: Comment on above: IG% - Immature Granu locytes (promyelocytes, myelocytes and metamyelocytes) > 1% indicates that a LEFT SHIFT is Present. MCH (RBC) [Entitic mass] 30.9 pg 27.0-32.0 [facility] Work Phone: Nucleated RBC/100 WBC (Bld) [Ratio] 0 % 0-5 [facility] Work Phone: MCHC Auto (RBC) [Mass/Vol]on 04-01-2022 MCHC (RBC) [Mass/Vol] 32.6 g/dL 32-36 [facility] Work Phone: No Panel Informationon 04-01 Estimated GFR (MDRD) Amer 125 mL/min >60 [facility] Work Phone: Comment on above: GFR Calc Estimated GFR (MDRD) Non-Af Amer 103 mL/min >60 [facility] Work Phone: Comment on above: Non- GFR Calc Thyroid Stimulating Hormone (TSH) 4.69 uIU/mL 0.358-3.74 [facility] Work Phone: Vitamin D 25-Hydroxy 37.6 ng/mL [facility] Work Phone: Comment on above: Vitamin D 25(OH) Sta tus Range Deficiency <20 ng/mL (50nmol/L) Insufficiency 20 - 30 ng/mL (50 - 75 nmol/L) Sufficiency 30 - 100 ng/mL (75 - 250 nmol/L) Toxicity >100 ng/mL (>250 nmol/L) Platelets bldon 04-01-2022 Platelets (Bld) [#/Vol] 387 10*3/uL 150-450 [facility] Work Phone: Serum or plasma albumin rowena urement (mass/volume)on 04-01-2022 Albumin [Mass/Vol] 3.5 g/dL 3.2-5.0 [facility] Work Phone: Serum or plasma albumin/glob ulin mass ratioon 04-01-2022 Albumin/Globulin [Mass ratio] 0.9 {ratio} 0.9-2.4 [facility] Work Phone: Serum or plasma calcium rowena urement (mass/volume)on 04-01-2022 Calcium [Mass/Vol] 8.4 mg/dL 8.5-10.1 [facility] Work Phone: Serum or plasma creatinine m easurement (mass/volume)on 04-01-2022 Creatinine [Mass/Vol] 0.61 mg/dL 0.55-1.02 [facility] Work Phone: Comment on above: The validity of the calculated GFR & GFRAA in patients over 70 years has not been determined. Clinical correlation is essential. Serum or plasma urea nitroge n measurement (mass/volume)on 04-01-2022 Urea nitrogen [Mass/Vol] 20 mg/dL 7-18 [facility] Work Phone: Thin prep Papanicolaou smear with manual screeningon 04-01-2022 Thin prep Papanicolaou smear with manual screening 14 U/L 15-37 [facility] Work Phone: Thin prep Papanicolaou smear with manual screening 8 5-15 [facility] Work Phone: Laboratory - Microbiology an d Antimicrobial susceptibilityon 02-14-2022 SARS-CoV-2 (COVID-19) RNA SANDY+probe Ql (Unsp spec) Not detected Not Detect [facility] Work Phone: Comment on above: Normal Reference Ran ge: Not DetectedMethod:(RT-PCR) real-time reverse transcriptase PCRLuminex EDNA Instrument*The Food and Drug Administration (FDA) has issued an Emergency Use Authorization (EAU) for the EDNA SARS-CoV-2 Assay for the rapid detection of the virus that causes COVID-19. This test has been validated, but the FDAs independent review of this validation is pending.*Negative results do not preclude infection and should not be used as the sole basis for treatment or patient management. Optimum specimen types and timing for peak viral levels during infections caused by SARS-CoV-2 have not been determined. Collection of multiple specimens from the same patient may be necessary to detect the virus. The possibility of a false negative result should be considered if the patient has clinical presentation or has had recent exposure. No Panel Information Influenza Types A,B Direct FA (MARQUISE) [facility] Work Phone: Encounters Encounter Date Encounter Type Care Provider Facility Start: 04-09-2023 End: 04-09-[facility] Start: 04-09-2023 End: 04-09-2023 ambulatory [facility] Work Phone: Start: 10-07-2022 End: 10-07-2022 ambulatory [facility] Facility:[facility] Start: 06-18-2022 End: 06-18-2022 ambulatory [facility] Facility:[facility] Start: 04-01-2022 End: 04-01-2022 ambulatory [facility] Work Phone: Start: 04-01-2022 End: 04-01-2022 [facility] Start: 02-14-2022 End: 02-14-2022 ambulatory [facility] Work Phone: Start: 02-14-2022 End: 02-14-2022 Patient encounter procedure [facility] Start: 02-06-2022 End: 02-06-2022 Patient encounter procedure [facility]Radiology, [facility] Procedures Date Procedure Procedure Detail Performing Clinician Start: 02-06-2022 Radiologic examinati on of knee Influenza Types A,B Direct FA (MARQUISE) Respiratory syncytia l virus antigen assay Immunizations Immunization Date Immunization Notes Care Provider Fa cility 03-01-2016 tetanus toxoid, redu ken diphtheria toxoid, and acellular pertussis vaccine, adsorbed [facility] Payers Date Payer Category Payer Self-pay [id number] 2022 Unknown [id number] [facility] [id number] 2015 Medicare [id number] Unknown [id number] Unknown [id number] Unknown [id number] Social History Date Type Detail Facility Start: 04-02-2020 End: 04-02-2020 Tobacco smoking status NHIS Unknown if ever smoked [facility] Start: 04-02-2020 None [facility] Start: 04-02-2020 Spouse/ Signif icant Other [facility] Start: 1950 Sex Assigned At Female [facility] Evaluation note Note Date & Type Note Facility Evaluation note No assessment information availa ble [facility] Work Phone: Chief Complaint and Reason for Visit Chief Complaint knee pain SCREENING Family History No Family History Records Found Relationship Condition Age at Onset Recorded Date/T vijaya Not Specified Cardiac disease Unknown Malignant melanoma Unknown Malignant neoplasm Unknown Advance Directives No Advanced Directives Records Found Advance Directive Response Recorded Date/ Time Living Will No April 02 6:04pm Power of Upholstery Cutter No April 02, 2020 6:04pm Advance Directive Response Recorded Date/ Time Living Will No April 02 5:04pm Power of Upholstery Cutter No April 02, 2020 5:04pm Summary Purpose Additional Source Comments Goals (unrecognized section and content) Goals may be documented in a n alternate sectionGoals may be documented in an alternate sectionGoals may be documented in an alternate section Care Teams (unrecognized sec tion and content) Team Status: Active Member Role Status Dates Dr. Montana Aly MD Family Provider Active Dr. Montana Aly MD Primary Care Provider Active Team Status: Inactive Member Role Status Dates Dr. Montana Aly MD Primary Care Provider, Attending Provider Active INFORMATION SOURCE (unrecogn ized section and content) DATE CREATED AUTHOR 04/17/2023 [facility] FOR RECORDS PERTAINING TO PATIENTS WHO ARE OR HAVE BEEN ENROLLED IN A CHEMICAL DEPENDENCY/SUBSTANCEABUSE PROGRAM, SOME INFORMATION MAY BE OMITTED. This clinical summary was aggregated from multiple sources. Caution should be exercised in using it in the provision of clinical care. This summary normalizes information from multiple sources, and as a consequence, information in this document may materially change the coding, format and clinical context of patient data. In addition, data may be omitted in some cases. CLINICAL DECISIONS SHOULD BE BASED ON THE PRIMARY CLINICAL RECORDS. [facility]elli, [facility]. provides no warranty or guarantee of the accuracy or completeness of information in this document.
[2024-12-29] MEDS: Lidocaine 1% /Epi 1:100 (20ml) 20 ML Vial INFILT (18:09)
--- NOTE | 2024-12-29 18:32 | EX.ED.GENINJ ---
HPI History of Present Illness Chief Complaint: Laceration Narrative Narrative: Chief complaint and HPI: Right anterior calf laceration. 74-year-old female with past medical history of HTN and HLD presents for evaluation of right anterior calf laceration. Patient states prior to arrival she was putting the brake down on her mower when her leg slid and she obtained a laceration. She is not on blood thinners. She denies injury elsewhere. Not up-to-date on tetanus. No numbness or tingling. Review of systems: See HPI Medications: As listed on the chart Allergies: As listed on the chart PFSH: Per chart Vital signs: As listed on the chart. Reviewed. Physical exam: Gen: A&O x3, NAD Head: Normocephalic, atraumatic Eyes: No sclera icterus, conjunctiva clear ENT: Moist mucous membranes CV: Regular rate Resp: Nonlabored respirations Musc: Full ROM, no deformity, right anterior sky laceration that is gaping-no active bleeding-no foreign object, compartments soft, nontender, DP/PT pulses +2, good capillary refill Skin: Warm, dry Neuro: Alert, oriented, grossly intact, sensation intact Psych: Cooperative, appropriate mood and affect. [facility] Medical History (Updated 12/29/24 @ 18:[address] Gio Palacios DO) Hyperthyroidism High cholesterol Home Medications ?Medication ?Instructions ?Recorded ?Last Taken ?Type calcium 500 mg (as carbonate)-vit 1 tab PO DAILY 03/01/16 Unknown History D3 10 mcg (400 unit) chewable tablet (Calcium 500 + D) fluoxetine 10 mg capsule 10 mg PO DAILY 03/01/16 Unknown History levothyroxine 100 mcg tablet 100 mcg PO DAILY 03/01/16 Unknown History pravastatin 40 mg tablet 40 mg PO QHS 03/01/16 Unknown History albuterol sulfate 90 mcg/actuation 2 puff inhalation Q4H PRN PRN 04/02/20 Unknown Rx aerosol inhaler Wheezing ##1 azithromycin 250 mg tablet 250 mg PO UD ##1 04/02/20 Unknown Rx coconut oil (bulk) 100 gm MC DAILY 04/02/20 Unknown History prednisone 20 mg tablet 60 mg (3 x 20 mg) PO DAILY #15 tabs 04/02/20 Unknown Rx cephalexin 500 mg capsule 500 mg PO BID 5 days #10 caps 12/29/24 Unknown Rx Allergy/AdvReac Type Severity Reaction Status Date / Time No Known Allergies Allergy Verified 12/29/24 15:12 Family History (Updated 10/08/17 @ 10:17 by Harriet García) Other Cancer Heart disease Melanoma Social History (Updated 10/12/17 @ 08:[address] Carmelita [place], [place]) Smoking Status: Former smoker alcohol intake: current alcohol intake frequency: holidays/special occasions only substance use type: does not use what type of physical activity do you participate in: walking frequency: 5-6 times per week EXAM Physical Exam Const Vital Signs: 12/29/24 15:10 Temperature 97.4 F L Temperature Source Oral Pulse Rate 82 Respiratory Rate 18 Blood Pressure 125/72 H Blood Pressure Mean 89 Pulse Ox 98 Oxygen Delivery Method Room Air MDM MDM MDM Narrative Medical decision making narrative: 74-year-old female with past medical history of HTN and HLD presents for evaluation of right anterior calf laceration. Patient states prior to arrival she was putting the brake down on her mower when her leg slid and she obtained a laceration. She is not on blood thinners. She denies injury elsewhere. Not up-to-date on tetanus. See physical exam findings. Patient has a right anterior calf/sky laceration that will warrant repair. Tetanus updated. Patient tolerated repair without complications by APC. 9 sutures were placed. See her procedure note. Given the size of the patient's laceration, will place her on prophylactic antibiotics to prevent infection. She was told to monitor for signs of infection. Sutures need to be removed in 10 to 14 days. Follow-up with primary care physician. She confirmed understand the plan. Patient stable to discharge home. Impression: 1. Right anterior calf laceration status post suture repair Discharge Plan Triage Chief Complaint: Laceration ED Provider: Gio Palacios Dx/Rx/DC Orders Clinical Impression: Laceration of calf Instructions: ED Laceration, All Closures Prescriptions: New cephalexin 500 mg capsule 500 mg PO BID 5 Days Qty: 10 0RF No Action pravastatin 40 MG tablet 40 mg PO QHS levothyroxine 100 MCG tablet 100 mcg PO DAILY fluoxetine 10 MG capsule 10 mg PO DAILY calcium carbonate-vitamin D3 [Calcium 500 + D] 1 EACH tablet,chewable 1 tab PO DAILY albuterol sulfate 1 INHALER inhaler 2 puff INHALATION Q4H PRN PRN (Reason: Wheezing) Qty: 1 0RF Rx Instructions: with spacer azithromycin 250 MG tablet 250 mg PO UD Qty: 1 0RF Rx Instructions: TAKE 2 TABLETS 1ST DAY THEN 1 TABLET DAILY FOR NEXT 4 DAYS. prednisone 20 MG tablet 60 mg PO DAILY Qty: 15 0RF coconut oil (bulk) 100 GM oil 100 gm MC DAILY Primary Care Provider: Montana Aly Chi Referrals: Montana Aly Chi, MD [Primary Care Provider] - 3-5 Days Activity Restrictions/Additional Instructions: Sutures need to be removed in 10 to 14 days. Follow-up with primary care physician. Return back to the ED if symptoms change or worsen. Okay to shower in 24 hours. No hot tubs, lakes, [place], soaking in the bathtub, oceans, pools until fully healed. Take antibiotics to prevent infection. First dose given here. Print Language: Syriac Disposition Disposition: Home, Self Care Discharge Date/Time: 12/29/24 19:04
== END 2024-12-29 19:04 | disposition home or self-care (01) ==
PROVIDERS: Emergency Provider Surgery; PCP Family Medicine Geriatric Medicine; Visit Provider Surgery
DX: S81.811A Laceration without foreign body, right lower leg, initial encounter (principal); Z87.891 Personal history of nicotine dependence; Z23 Encounter for immunization; X58.XXXA Exposure to other specified factors, initial encounter
CPT/HCPCS: 12002; 90471; 90715; 99284

== ENCOUNTER → 2025-05-04 | Outpatient (CLI) | payer MEDICARE, OTHER, SELFPAY ==
[2025-05-04 11:20] LABS: Hematocrit 37.9 % (37-47); Hemoglobin 12.8 g/dL (12.0-15.0); Immature Granulocytes Count 0.020 X10^3/uL (0.0-0.0); Mean Corp Hgb Conc 33.8 g/dL (32-36); Mean Corpuscular Volume 93.8 fL (81-99); Mean Platelet Vol. 9.2 fl (6.2-12.0); NRBC Flagged by Analyzer 0 % (0-5); Platelet Count 317 K/mm3 (150-450); RBC Distribution Width CV 12.9 % (11.6-14.6); RBC Distribution Width SD 44.1 fl (35.1-43.9); Red Blood Count 4.04 M/mm3 (4.2-5.4); White Blood Count 5.8 K/mm3 (4.4-11.0)
[2025-05-04 12:10] LABS: AST(SGOT) 29 U/L (<=31); Alanine Aminotransfer ALT/SGPT 53 U/L (<=34); Albumin, Serum 4.0 g/dL (3.4-4.8); Alkaline Phosphatase 51 U/L (35-104); Anion Gap 9 (5-15); BUN 14 mg/dL (4-19); BUN/Creat Ratio 19.6 RATIO (10-20); Calcium,Total 8.7 mg/dL (7.6-11.0); Carbon Dioxide 25.5 mmol/L (21.0-32.0); Chloride 104 mmol/L (98-108); Globulin 2.8 g/dL (2.2-4.2); Glucose 89 mg/dL (70-99); Potassium 4.2 mmol/L (3.3-5.1)
[2025-05-04 12:12] LABS: Vitamin D,25 Hydroxy 32.9 ng/mL (30-100)
--- OUTSIDE RECORDS SUMMARY | 2025-05-04 13:52 | XMS RPT_ITS | CCD ---
Author Organization [facility] Inform ion Partnership [employer] [facility] Care Team Providers Care Senior Mechanical Design Engineer Name Role Phone Jermain SNIDER, Dr. [place] Ferrer Primary Care Provider [phone] Dr. Gio Palacios DO Emergency Provider [place] Aly Chi Primary Care Unavailable Gio Palacios Attending Unavailabl e Medications Current Medications Medication Drug Class(es) Dates Sig (Normalized) Sig (Original) [id number] 200 actuat albuterol 0.09 mg/actuat metered dose inhaler (4 sources) beta2-Adrenergic Agonist Start: 04-02-2020 Albuterol Sulfate 1 INHALER inhaler Active 2 NMA INHALATION EVERY 4 HOURS NEEDED as needed for Wheezing 1 0 April 02, 2020 1:00am with spacer Start: 04-02-2020 take 1 puff(s) by in halation every four hours as needed Albuterol Sulfate Active 2 PUFF INHALATION EVERY 4 HOURS NEEDED April 02, 2020 12:00am with spacer azithromycin 250 mg oral tablet (4 sources) Macrolide Antimicrobial Start: 04-02-2020 take 2 tablets by mouth once daily, then take 1 tablet by mouth once daily Azithromycin 250 MG tablet Active 250 mg PO DIRECTED April 02, 2020 1:00am TAKE 2 TABLETS 1ST DAY THEN 1 TABLET DAILY FOR NEXT 4 DAYS. calcium carbonate 1250 mg / cholecalciferol 0.01 mg chewable tablet (4 sources) Vitamin D Start: 03-01-2016 take 1 tablet by mouth once daily Calcium Carbonate-Vitamin D3 (Calcium 500+D Tablet Chew) 1 EACH tablet,chewable Active 1 {tbl} PO DAILY March 01, 2016 12:00am cephalexin 500 mg oral capsule (1 source) Cephalosporin Antibacterial Start: 12-29-2024 take 1 capsule by mouth twice daily Cephalexin 500 mg capsule Active 500 mg PO TWICE A DAY 10 5 0 December 29, 2024 12:00am Coconut Oil (3 sources) Start: 04-02-2020 Coconut Oil (Bulk) Active 100 GM MC DAILY April 02, 2020 12:00am Start: 04-02-2020 Coconut Oil (B ulk) Active 100 GM MC DAILY April 02, 2020 1:00am Coconut Oil (Bulk) 100 GM oil (1 source) Start: 04-02-2020 Coconut Oil (B ulk) 100 GM oil Active 100 g MC DAILY April 02, 2020 1:00am FLUoxetine 10 mg oral capsule (4 sources) Serotonin Reuptake Inhibitor Start: 03-01-2016 take 1 capsule by mouth once daily Fluoxetine 10 MG capsule Active 10 mg PO DAILY March 01, 2016 12:00am levothyroxine sodium 0.1 mg oral tablet (4 sources) l-Thyroxine Start: 03-01-2016 take 1 tablet by mouth once daily Levothyroxine 100 MCG tablet Active 100 ug PO DAILY March 01, 2016 12:00am pravastatin sodium 40 mg oral tablet (4 sources) HMG-CoA Reductase Inhibitor Start: 03-01-2016 take 1 tablet by mouth at bedtime Pravastatin 40 MG tablet Active 40 mg PO AT BEDTIME March 01, 2016 12:00am predniSONE 20 mg oral tablet (4 sources) Start: 04-02-2020 take 3 tablets by mouth once daily Prednisone 20 MG tablet Active 60 mg PO DAILY 15 April 02, 2020 1:00am Start: 04-02-2020 take 60 mg by mouth once daily Prednisone Active 60 MG PO DAILY 15 April 02, 2020 12:00am Completed/Discontinued Medications Medication Drug Class(es) Dates Sig (Normalized) Sig (Original) amoxicillin 875 mg / clavulanate 125 mg oral tablet (4 sources) Penicillin-class Antibacterial Start: 03-01-2016 End: 10-08-2017 take 1 tablet by mouth every twelve hours Amoxicillin-Pot Clavulanate 875 MG tablet Discontinued 875 mg PO Q12H 20 0 March 01, 2016 12:00am October 08, 2017 10:16am Problems Problem Classification Problem Date Documented Da te Episodic/Chronic Acute bronchitis (4 sources) Acute bronchitis with bronchospasm; Translations: [Acute bronchitis, unspecified] 04-03-2020 Episodic Open wounds of extremities (2 sources) Laceration of calf; Translations: [Laceration without foreign body, unspecified lower leg, initial encounter] Onset: 01-04-2025 12-29-2024 Episodic Other bone disease and musculoskeletal deformities (4 sources) Segmental and somatic dysfunction; Translations: [Segmental and somatic dysfunction of thoracic region] 10-08-2017 Episodic Results Test Name Value Interpretation Reference Range Facility Emergency Department Summary on 12-29-2024 Emergency Department Summary [facility] Medical Records Department [address] [place] [address] Emergency Department Summary 12/29/24 MR#: [id number] Acct: [id number] Name: EPIFANIO BARRIGA Rep #: [id number] : 1950 74 From: Gio Palacios DO PCP: Dr. [place] Aly MD Status:DEP ER Location: ED HPI History of Present Illness Chief Complaint: Laceration Narrative Narrative: Chief complaint and HPI: Right anterior calf laceration. 74-year-old female with past medical history of HTN and HLD presents for evaluation of right anterior calf laceration. Patient states prior to arrival she was putting the brake down on her mower when her leg slid and she obtained a laceration. She is not on blood thinners. She denies injury elsewhere. Not up-to-date on tetanus. No numbness or tingling. Review of systems: See HPI Medications: As listed on the chart Allergies: As listed on the chart PFSH: Per chart Vital signs: As listed on the chart. Reviewed. Physical exam: Gen: A O x3, NAD Head: Normocephalic, atraumatic Eyes: No sclera icterus, conjunctiva clear ENT: Moist mucous membranes CV: Regular rate Resp: Nonlabored respirations Musc: Full ROM, no deformity, right anterior sky laceration that is gaping-no active bleeding-no foreign object, compartments soft, nontender, DP/PT pulses +2, good capillary refill Skin: Warm, dry Neuro: Alert, oriented, grossly intact, sensation intact Psych: Cooperative, appropriate mood and affect. [facility] Medical History (Updated 12/29/24 @ 18:[address] Gio Palacios DO) Hyperthyroidism High cholesterol Home Medications ???Medication ???Instructions ???Recorded ???Last Taken ???Type calcium 500 mg (as carbonate)-vit 1 tab PO DAILY 03/01/16 Unknown H istory D3 10 mcg (400 unit) chewable tablet (Calcium 500 + D) fluoxetine 10 mg capsule 10 mg PO DAILY 03/01/16 Unknown Hi story levothyroxine 100 mcg tablet 100 mcg PO DAILY 03/01/16 Unknown History pravastatin 40 mg tablet 40 mg PO QHS 03/01/16 Unknown Hist ory albuterol sulfate 90 mcg/actuation 2 puff inhalation Q4H PRN PRN Unknown Rx aerosol inhaler Wheezing ##1 azithromycin 250 mg tablet 250 mg PO UD ##1 04/02/20 Unknown Rx coconut oil (bulk) 100 gm MC DAILY 04/02/20 Unknown H istory prednisone 20 mg tablet 60 mg (3 x 20 mg) PO DAILY #15 tab s 04/02/20 Unknown Rx cephalexin 500 mg capsule 500 mg PO BID 5 days #10 caps 12/16 Unknown Rx Allergy/AdvReac Type Severity Reaction Status Date / Time No Known Allergies Allergy Verified 12/29/24 15:12 Family History (Updated 10/08/17 @ 10:17 by Harriet García) Other Cancer Heart disease Melanoma Social History (Updated 10/12/17 @ 08:[address] Carmelita [place], [place]) Smoking Status: Former smoker alcohol intake: current alcohol intake frequency: holidays/special occasions only substance use type: does not use what type of physical activity do you participate in: walking frequency: 5-6 times per week EXAM Physical Exam Const Vital Signs: 12/29/24 15:10 Temperature 97.4 F L Temperature Source Oral Pulse Rate 82 Respiratory Rate 18 Blood Pressure 125/72 H Blood Pressure Mean 89 Pulse Ox 98 Oxygen Delivery Method Room Air MDM MDM MDM Narrative Medical decision making narrative: 74-year-old female with past medical history of HTN and HLD presents for evaluation of right anterior calf laceration. Patient states prior to arrival she was putting the brake down on her mower when her leg slid and she obtained a laceration. She is not on blood thinners. She denies injury elsewhere. Not up-to-date on tetanus. See physical exam findings. Patient has a right anterior calf/sky laceration that will warrant repair. Tetanus updated. Patient tolerated repair without complications by APC. 9 sutures were placed. See her procedure note. Given the size of the patient's laceration, will place her on prophylactic antibiotics to prevent infection. She was told to monitor for signs of infection. Sutures need to be removed in 10 to 14 days. Follow-up with primary care physician. She confirmed understand the plan. Patient stable to discharge home. Impression: 1. Right anterior calf laceration status post suture repair Discharge Plan Triage Chief Complaint: Laceration ED Provider: Freddy Palacios Dx/Rx/DC Orders Clinical Impression: Laceration of calf Instructions: ED Laceration, All Closures Prescriptions: New cephalexin 500 mg capsule 500 mg PO BID 5 Days Qty: 10 0RF No Action pravastatin 40 MG tablet 40 mg PO QHS levothyroxine 100 MCG tablet 100 mcg PO DAILY fluoxetine 10 MG capsule 10 mg PO DAILY calcium carbonate-vitamin D3 [Calcium 500 + D] 1 EACH tablet,chewable 1 tab PO DAILY albu (more content not included)... Normal [facility] Absolute lymphocyte countOrd ered By: [place] Aly on 04-09-2023 Lymphocytes Auto (Unsp spec) [#/Vol] 3.29 10*3/uL 0.83-4.51 [facility] Basophil percentageOrdered B y: [place] Aly on 04-09-2023 Basophils/100 WBC (Bld) 0.5 % 0-1 [facility] Bilirubin [Mass/Vol] 0.70 mg/dL 0.20-1.00 [facility] Comment on above: For patients on eltr ombopag therapy, use of Dimension [place] TBIL is not recommended. Chloride [Moles/Vol] 107 mmol/L 98-107 [facility] Eosinophils/100 WBC (Bld) 1.4 % 0-5 [facility] Glucose [Mass/Vol] 96 mg/dL 74-106 [facility] Neutrophils (Bld) [#/Vol] 4.0 10*3/uL 2.0-7.7 [facility] Neutrophils/100 WBC (Bld) 49.4 % 47-70 [facility] Potassium [Moles/Vol] 3.7 mmol/L 3.5-5.1 [facility] Protein [Mass/Vol] 7.8 g/dL 6.4-8.2 [facility] Sodium [Moles/Vol] 141 mmol/L 136-145 [facility] WBC (Bld) [#/Vol] 8.0 10*3/uL 4.4-11.0 [facility] Blood erythrocytes count (nu mber/volume)Ordered By: [place] Aly on 04-09-2023 RBC (Bld) [#/Vol] 4.31 10*6/uL 4.2-5.4 [facility] Blood hemoglobin measurement (mass/volume)Ordered By: [place] Aly on 04-09-2023 Hemoglobin (Bld) [Mass/Vol] 13.4 g/dL 12.0-15.0 [facility] Blood lymphocytes/100 leukoc ytesOrdered By: [place] Jermain on 04-09-2023 Lymphocytes/100 WBC (Bld) 41.0 % 19-41 [facility] Blood monocytes/100 leukocyt esOrdered By: [facility] Jermain on 04-09-2023 Monocytes/100 WBC (Bld) 7.5 % 0-10 [facility] Blood platelet mean volumeOr dered By: Mnotana Aly on 04-09-2023 Platelet mean volume (Bld) [Entitic vol] 8.9 fL 6.2-12.0 [facility] Determination of erythrocyte mean corpuscular volume (MCV)Ordered By: [place] Aly on 04-09-2023 MCV (RBC) [Entitic vol] 96.8 fL 81-99 [facility] Hematocrit Auto (Bld) [Volum e fraction][facility]: [facility] 04-[facility]23 Hematocrit (Bld) [Volume fraction] 41.7 % 37-47 [facility] Laboratory - Chemistry and C hemistry - challengeOrdered By: [facility] on 04-09-2023 ALP [Catalytic activity/Vol] 65 U/L 45-117 [facility] ALT [Catalytic activity/Vol] 26 U/L 13-56 [facility] CO2 [Moles/Vol] 29.0 mmol/L 21.0-32.0 [facility] Globulin (S) [Mass/Vol] 4.2 g/dL 2.2-4.2 [facility] Urea nitrogen/Creatinine [Mass ratio] 25.8 mg/mg 10-20 [facility] Laboratory - Hematology and Cell countsOrdered By: [place] Aly on 04-09-2023 Erythrocyte distribution width (RBC) [Entitic vol] 44.9 fL 35.1-43.9 [facility] Erythrocyte distribution width (RBC) [Ratio] 12.5 % 11.6-14.6 [facility] Immature granulocytes/100 WBC (Bld) 0.200 % 0.0-0.9 [facility] Comment on above: IG% - Immature Granu locytes (promyelocytes, myelocytes and metamyelocytes) > 1% indicates that a LEFT SHIFT is Present. MCH (RBC) [Entitic mass] 31.1 pg 27.0-32.0 [facility] Nucleated RBC/100 WBC (Bld) [Ratio] 0 % 0-5 [facility] MCHC Auto (RBC) [Mass/Vol]Or dered By: [place] Aly on 04-09-2023 MCHC (RBC) [Mass/Vol] 32.1 g/dL 32-36 [facility] No Panel InformationOrdered By: [place] Aly on 04-09-2023 Estimated GFR (MDRD) Amer 100 mL/min >60 [facility] Comment on above: GFR Calc Estimated GFR (MDRD) Non-Af Amer 82 mL/min >60 [facility] Comment on above: Non- GFR Calc Thyroid Stimulating Hormone (TSH) 2.10 uIU/mL 0.358-3.74 [facility] Vitamin D 25-Hydroxy 52.3 ng/mL [facility] Comment on above: Vitamin D 25(OH) Sta tus Range Deficiency <20 ng/mL (50nmol/L) Insufficiency 20 - 30 ng/mL (50 - 75 nmol/L) Sufficiency 30 - 100 ng/mL (75 - 250 nmol/L) Toxicity >100 ng/mL (>250 nmol/L) Platelets bldOrdered By: [place] Aly on 04-09-2023 Platelets (Bld) [#/Vol] 373 10*3/uL 150-450 [facility] Serum or plasma albumin rowena urement (mass/volume)Ordered By: [place] Aly on 04-09-2023 Albumin [Mass/Vol] 3.6 g/dL 3.2-5.0 [facility] Serum or plasma albumin/glob ulin mass ratioOrdered By: [place] Aly on 04-09-2023 Albumin/Globulin [Mass ratio] 0.9 {ratio} 0.9-2.4 [facility] Serum or plasma calcium rowena urement (mass/volume)Ordered By: [place] Aly on 04-09-2023 Calcium [Mass/Vol] 9.0 mg/dL 8.5-10.1 [facility] Serum or plasma creatinine m easurement (mass/volume)Ordered By: [place] Jermain on 04-09-2023 Creatinine [Mass/Vol] 0.74 mg/dL 0.55-1.02 [facility] Comment on above: The validity of the calculated GFR & GFRAA in patients over 70 years has not been determined. Clinical correlation is essential. Serum or plasma urea nitroge n measurement (mass/volume)Ordered By: [place] Aly on 04-09-2023 Urea nitrogen [Mass/Vol] 19 mg/dL 7-18 [facility] Thin prep Papanicolaou smear with manual screeningOrdered By: [place] Aly on 04-09-2023 Thin prep Papanicolaou smear with manual screening 16 U/L 15-37 [facility] Thin prep Papanicolaou smear with manual screening 5 5-15 [facility] Absolute lymphocyte counton 04-01-2022 Lymphocytes Auto (Unsp spec) [#/Vol] 3.29 10*3/uL 0.83-4.51 [facility] Work Phone: Basophil percentageon 2021 Basophils/100 WBC (Bld) 0.4 % 0-1 [facility] Work Phone: Bilirubin [Mass/Vol] 0.40 mg/dL 0.20-1.00 [facility] Work Phone: Comment on above: For patients on eltr ombopag therapy, use of Dimension [place] TBIL is not recommended. Chloride [Moles/Vol] 105 mmol/L 98-107 [facility] Work Phone: Eosinophils/100 WBC (Bld) 2.1 % 0-5 [facility] Work Phone: Glucose [Mass/Vol] 91 mg/dL 74-106 [facility] Work Phone: Neutrophils (Bld) [#/Vol] 4.0 10*3/uL 2.0-7.7 [facility] Work Phone: Neutrophils/100 WBC (Bld) 49.2 % 47-70 [facility] Work Phone: Potassium [Moles/Vol] 3.9 mmol/L 3.5-5.1 [facility] Work Phone: Protein [Mass/Vol] 7.5 g/dL 6.4-8.2 [facility] Work Phone: Sodium [Moles/Vol] 140 mmol/L 136-145 [facility] Work Phone: WBC (Bld) [#/Vol] 8.2 10*3/uL 4.4-11.0 [facility] Work Phone: Blood erythrocytes count (nu mber/volume)on 04-01-2022 RBC (Bld) [#/Vol] 4.33 10*6/uL 4.2-5.4 [facility]: Blood hemoglobin measurement (mass/volume)on 04-01-2022 Hemoglobin (Bld) [Mass/Vol] 13.4 g/dL 12.0-15.0 [facility] Work Phone: Blood lymphocytes/100 leukoc yteson 04-01-2022 Lymphocytes/100 WBC (Bld) 40.2 % 19-41 [facility] Work Phone: Blood monocytes/100 leukocyt eson 04-01-2022 Monocytes/100 WBC (Bld) 7.9 % 0-10 [facility] Work Phone: Blood platelet mean volumeon 04-01-2022 Platelet mean volume (Bld) [Entitic vol] 9.4 fL 6.2-12.0 [facility] Work Phone: Determination of erythrocyte mean corpuscular volume (MCV)on 04-01-2022 MCV (RBC) [Entitic vol] 94.9 fL 81-99 [facility] Work Phone: Hematocrit Auto (Bld) [Volum e fraction]on 04-01-2022 Hematocrit (Bld) [Volume fraction] 41.1 % 37-47 [facility] Work Phone: Laboratory - Chemistry and C hemistry - challengeon 04-01-2022 ALP [Catalytic activity/Vol] 62 U/L 45-117 [facility] Work Phone: ALT [Catalytic activity/Vol] 29 U/L 13-56 [facility] Work Phone: CO2 [Moles/Vol] 27.0 mmol/L 21.0-32.0 [facility] Work Phone: Globulin (S) [Mass/Vol] 4.0 g/dL 2.2-4.2 [facility] Work Phone: Urea nitrogen/Creatinine [Mass ratio] 32.9 mg/mg 10-20 [facility] Work Phone: Laboratory - Hematology and Cell countson 04-01-2022 Erythrocyte distribution width (RBC) [Entitic vol] 45.0 fL 35.1-43.9 [facility] Work Phone: Erythrocyte distribution width (RBC) [Ratio] 12.8 % 11.6-14.6 [facility] Work Phone: Immature granulocytes/100 WBC (Bld) 0.200 % 0.0-0.9 [facility] Work Phone: Comment on above: IG% - Immature Granu locytes (promyelocytes, myelocytes and metamyelocytes) > 1% indicates that a LEFT SHIFT is Present. MCH (RBC) [Entitic mass] 30.9 pg 27.0-32.0 [facility] Work Phone: Nucleated RBC/100 WBC (Bld) [Ratio] 0 % 0-5 [facility] Work Phone: MCHC Auto (RBC) [Mass/Vol]on 04-01-2022 MCHC (RBC) [Mass/Vol] 32.6 g/dL 32-36 [facility] Work Phone: No Panel Informationon 04-01 Estimated GFR (MDRD) Amer 125 mL/min >60 [facility] Work Phone: Comment on above: GFR Calc Estimated GFR (MDRD) Non-Af Amer 103 mL/min >60 [facility] Work Phone: Comment on above: Non- GFR Calc Thyroid Stimulating Hormone (TSH) 4.69 uIU/mL 0.358-3.74 [facility] Work Phone: Vitamin D 25-Hydroxy 37.6 ng/mL [facility] Work Phone: Comment on above: Vitamin D 25(OH) Sta tus Range Deficiency <20 ng/mL (50nmol/L) Insufficiency 20 - 30 ng/mL (50 - 75 nmol/L) Sufficiency 30 - 100 ng/mL (75 - 250 nmol/L) Toxicity >100 ng/mL (>250 nmol/L) Platelets bldon 04-01-2022 Platelets (Bld) [#/Vol] 387 10*3/uL 150-450 [facility] Work Phone: Serum or plasma albumin rowena urement (mass/volume)on 04-01-2022 Albumin [Mass/Vol] 3.5 g/dL 3.2-5.0 [facility] Work Phone: Serum or plasma albumin/glob ulin mass ratioon 04-01-2022 Albumin/Globulin [Mass ratio] 0.9 {ratio} 0.9-2.4 [facility] Work Phone: Serum or plasma calcium rowena urement (mass/volume)on 04-01-2022 Calcium [Mass/Vol] 8.4 mg/dL 8.5-10.1 [facility] Work Phone: Serum or plasma creatinine m easurement (mass/volume)on 04-01-2022 Creatinine [Mass/Vol] 0.61 mg/dL 0.55-1.02 [facility] Work Phone: Comment on above: The validity of the calculated GFR & GFRAA in patients over 70 years has not been determined. Clinical correlation is essential. Serum or plasma urea nitroge n measurement (mass/volume)on 04-01-2022 Urea nitrogen [Mass/Vol] 20 mg/dL 7-18 [facility] Work Phone: Thin prep Papanicolaou smear with manual screeningon 04-01-2022 Thin prep Papanicolaou smear with manual screening 14 U/L 15-37 [facility] Work Phone: Thin prep Papanicolaou smear with manual screening 8 5-15 [facility] Work Phone: Laboratory - Microbiology an d Antimicrobial susceptibilityon 02-14-2022 SARS-CoV-2 (COVID-19) RNA SANDY+probe Ql (Unsp spec) Not detected Not Detect [facility] Work Phone: Comment on above: Normal Reference [...] Information Influenza Types A,B Direct FA (MARQUISE) [facility] Work Phone: Vital Signs Date Time Vital Sign Value Performing Clinician Aiyana cha 12-29-2024 15:10-0400 Body height 175.[address] [place] Aly MD Work Phone: [facility] 12-29-2024 15:10-0400 Body mass index (BMI) [Ratio] 21.7 kg/m2 Dr. [place] Aly MD Work Phone: [facility] 12-29-2024 15:10-0400 Body temperature 97.4 [degF] Dr. [place] Aly MD Work Phone: [facility] 12-29-2024 15:10-0400 Body weight 66.[address] [place] Aly MD Work Phone: [facility] 12-29-2024 15:10-0400 Diastolic blood pressure 72 mm[Hg] Dr. [place] Aly MD Work Phone: [facility] 12-29-2024 15:10-0400 Heart rate 82 /min Dr. [place] Aly MD Work Phone: [facility] 12-29-2024 15:10-0400 Respiratory rate 18 /min Dr. [place] Aly MD Work Phone: [facility] 12-29-2024 15:10-0400 SaO2% (BldA) [Mass fraction] 98 % Dr. [place] Aly MD Work Phone: [facility] 12-29-2024 15:10-0400 Systolic blood pressure 125 mm[Hg] Dr. [place] Aly MD Work Phone: [facility] Encounters Encounter Date Encounter Type Care Provider Facility Start: 12-29-2024 End: 12-29-2024 Emergency department patient visit Dr. [place] Aly MD Work Phone: -Emergency Department Work Phone: Start: 04-09-2023 End: 04-09-[address] [facility] Work Phone: Start: 04-09-2023 End: 04-09-[address] [facility]-Laboratory, Phy Office 3rd Flr Start: 04-01-2022 End: 04-01-[address] [facility] Work Phone: Start: 04-01-2022 End: 04-01-[address] [facility]-Laboratory, Phy Office 3rd Flr Start: 02-14-2022 End: 02-14-[address] [facility] Work Phone: Start: 02-14-2022 End: 02-14-[address] [facility]-Pulmonary Services/Neurology Start: 02-06-2022 End: 02-06-[address] [facility]-Radiology, [facility] Procedures Date Procedure Procedure Detail Performing Clinician Start: 02-06-2022 Radiologic examinati on of knee Influenza Types A,B Direct FA (MARQUISE) Respiratory syncytia l virus antigen assay Plan of Treatment Date Care Activity Detail Author Start: 12-29-2024 [facility] Patient Education ED Laceration, All Closures [facility] Work Phone: Immunizations Immunization Date Immunization Notes Care Provider Fa cility 12-29-2024 tetanus toxoid, redu ken diphtheria toxoid, and acellular pertussis vaccine, adsorbed Dr. [place] Aly MD Work Phone: [facility] 03-01-2016 tetanus toxoid, redu ken diphtheria toxoid, and acellular pertussis vaccine, adsorbed [facility] Payers Date Payer Category Payer Self-pay [id number] 2024 Unknown [id number] [facility] [id number] 2015 Medicare [id number] Unknown [id number] Social History Date Type Detail Facility Start: 04-02-2020 End: 04-02-2020 Tobacco smoking status NHIS Unknown if ever smoked [facility] Start: 04-02-2020 None [facility] Start: 04-02-2020 Spouse/ Signif icant Other [facility] Start: 1950 Sex Assigned At Female [facility] Start: 12-29-2024 Tobacco smoking status NHIS Ex-smoker (finding) [facility] Discharge instructions 12-29-2024 Note Date & Type Note Facility 12-29-2024 Hospital Discharg e instructions Additional Instructions Sutures need to be removed in 10 to 14 days. Follow-up with primary care physician. Return back to the ED if symptoms change or worsen. Okay to shower in 24 hours. No hot tubs, lakes, [place], soaking in the bathtub, oceans, pools until fully healed. Take antibiotics to prevent infection. First dose given here. [facility] Work Phone: Evaluation note Note Date & Type Note Facility Evaluation note No assessment information availa ble [facility] Work Phone: Reason for referral (narrative) Note Date & Type Note Facility Reason for referral (narrative) No reason for referral information available [facility] Work Phone: Chief Complaint and Reason for Visit Chief Complaint knee pain SCREENING Chief Complaint Admit Date laceration December 29, 2024 3:1 0pm Family History No Family History Records Found Relationship Condition Age at Onset Recorded Date/T vijaya Not Specified Cardiac disease Unknown Malignant melanoma Unknown Malignant neoplasm Unknown Advance Directives No Advanced Directives Records Found Advance Directive Response Recorded Date/ Time Living Will No April 02 6:04pm Power of Cutter Banana Room No April 02, 2020 6:04pm Advance Directive Response Recorded Date/ Time Living Will No April 02 5:04pm Power of Cutter Banana Room No April 02, 2020 5:04pm Advance Directive Response Recorded Date/ Time Do you have a Healthcare Power of Cutter Banana Room? No December 29, 2024 5:46pm Summary Purpose Additional Source Comments Goals (unrecognized [...] MD Primary Care Provider, Attending Provider Active Team Status: Active Member Role/Relationship Status Dates Dr. [place] Aly MD Primary Care Provider Active Team Status: Inactive Member Role/Relationship Status Dates Dr. [place] Aly MD Primary Care Provider Active Start: December 29, 2024 End: December 29, 2024 Dr. Gio Palacios DO Emergency Provider Activ e Start: December 29, 2024 End: December 29, 2024 INFORMATION SOURCE (unrecogn ized section and content) DATE CREATED AUTHOR 01/06/2025 [facility] FOR RECORDS PERTAINING TO PATIENTS WHO ARE [...] BE BASED ON THE PRIMARY CLINICAL RECORDS. [facility] eReceipts [facility]. provides no warranty or guarantee of the accuracy or completeness of information in this document.
[2025-05-04 19:01] LABS: Xtra Tube Kwok EXTRA TUBE
[2025-05-06 05:07] LABS: HEPATITIS B SURFACE AG Negative (Negative); Hep C Antibodies Non Reactive (Non Reactive)
== END | disposition home or self-care (01) ==
PROVIDERS: PCP Family Medicine Geriatric Medicine; Visit Provider Family Medicine Geriatric Medicine
DX: E03.9 Hypothyroidism, unspecified (principal); B18.0 Chronic viral hepatitis B with delta-agent; E55.9 Vitamin D deficiency, unspecified; R53.83 Other fatigue
CPT/HCPCS: 36415; 80053; 80074; 82306; 84443; 85025

== ENCOUNTER → 2025-05-09 | Outpatient (CLI) | payer MEDICARE, OTHER, SELFPAY ==
--- NOTE | 2025-05-09 07:51 | US_ITS ---
PROCEDURE: ABDOMEN LIMITED 05/09/2025 REASON FOR EXAM: CHRONIC VIRAL HEPATITIS B WITH DELTA AGENT TECHNIQUE: Procedure Code: USABDL Modality: US Procedure: ABDOMEN LIMITED COMPARISON: None FINDINGS: Liver: Grossly normal size and echotexture. The liver measures 12.8 cm in vertical dimension in the midclavicular line. There is a 1.2 cm in diameter cyst in the left hepatic lobe. There is normal hepatopetal flow in the MPV. Gallbladder: No stones, sludge, wall thickening or tenderness. Common bile duct: Normal measuring 5 mm. Pancreas: Visualized portions are sonographically unremarkable. Other: Visualized portions of the right kidney are unremarkable. The kidney measures 9.8 x 5.3 x 4.9 cm with a 1.4 cm in thickness cortex. No right upper quadrant ascites. US/Abdomen Limited IMPRESSION: The liver is grossly normal without solid focal abnormality. There is a cyst i n the left hepatic lobe. Reading Location: [place] [address]
--- OUTSIDE RECORDS SUMMARY | 2025-05-09 08:04 | XMS RPT_ITS | CCD ---
Author Organization [facility] Inform ion Partnership [facility] Care Team Providers Care Metal Refiner Name Role Phone Jermain SNIDER, Dr. Montana Ferrer Primary Care Provider Dr. Gio Palacios DO Emergency Provider [place] Aly Chi Primary Care Unavailable Gio Palacios Attending Unavailabl e Medications Current Medications Medication Drug Class(es) Dates Sig (Normalized) Sig (Original) [id number] 200 actuat albuterol 0.09 mg/actuat metered dose [...] Department Summary on 12-29-2024 Emergency Department Summary [facility] Medical Records Department [address] [place] [address] Emergency Department Summary 12/29/24 MR#: [id number] Acct: [id number] Name: EPIFANIO BARRIGA Rep #: [id number] : 1950 74 From: Gio Palacios DO [...] intact Psych: Cooperative, appropriate mood and affect. [facility] Medical History (Updated 12/29/24 @ 18:45 by [...] 10/12/17 @ 08:[address] Carmelita [place], [place]) Smoking Status: Former smoker alcohol intake: current [...] albu (more content not included)... Normal [facility] Absolute lymphocyte countOrd ered By: [place] Aly on 04-09-2023 Lymphocytes Auto (Unsp spec) [#/Vol] 3.29 10*3/uL 0.83-4.51 [facility] Basophil percentageOrdered B y: [place] Aly on 04-09-2023 Basophils/100 WBC (Bld) 0.5 % 0-1 [facility] Bilirubin [Mass/Vol] 0.70 mg/dL 0.20-1.00 [facility] Comment on above: For patients on eltr ombopag therapy, use of Dimension [place] TBIL is not recommended. Chloride [Moles/Vol] 107 mmol/L 98-107 [facility] Eosinophils/100 WBC (Bld) 1.4 % 0-5 [facility] Glucose [Mass/Vol] 96 mg/dL 74-106 [facility] Neutrophils (Bld) [#/Vol] 4.0 10*3/uL 2.0-7.7 [facility] Neutrophils/100 WBC (Bld) 49.4 % 47-70 [facility] Potassium [Moles/Vol] 3.7 mmol/L 3.5-5.1 [facility] Protein [Mass/Vol] 7.8 g/dL 6.4-8.2 [facility] Sodium [Moles/Vol] 141 mmol/L 136-145 [facility] WBC (Bld) [#/Vol] 8.0 10*3/uL 4.4-11.0 [facility] Blood erythrocytes count (nu mber/volume)Ordered By: [place] Aly on 04-09-2023 RBC (Bld) [#/Vol] 4.31 10*6/uL 4.2-5.4 [facility] Blood hemoglobin measurement (mass/volume)Ordered By: [place] Aly on 04-09-2023 Hemoglobin (Bld) [Mass/Vol] 13.4 g/dL 12.0-15.0 [facility] Blood lymphocytes/100 leukoc ytesOrdered By: Montana Jermain on 04-09-2023 Lymphocytes/100 WBC (Bld) 41.0 % 19-41 [facility] Blood monocytes/100 leukocyt esOrdered By: [facility] Jermain on 04-09-2023 Monocytes/100 WBC (Bld) 7.5 % 0-10 [facility] Blood platelet mean volumeOr dered By: [place] Aly on 04-09-2023 Platelet mean volume (Bld) [Entitic vol] 8.9 fL 6.2-12.0 [facility] Determination of erythrocyte mean corpuscular volume (MCV)Ordered By: [place] Aly on 04-09-2023 MCV (RBC) [Entitic vol] 96.8 fL 81-99 [facility] Hematocrit Auto (Bld) [Volum e fraction][facility] Hematocrit (Bld) [Volume fraction] 41.7 % 37-47 [facility] Laboratory - Chemistry and C hemistry - challengeOrdered By: [facility] on 04-09-2023 ALP [Catalytic activity/Vol] 65 U/L 45-117 [facility] ALT [Catalytic activity/Vol] 26 U/L 13-56 [facility] CO2 [Moles/Vol] 29.0 mmol/L 21.0-32.0 [facility] Globulin (S) [Mass/Vol] 4.2 g/dL 2.2-4.2 [facility] Urea nitrogen/Creatinine [Mass ratio] 25.8 mg/mg 10-20 [facility] Laboratory - Hematology and Cell countsOrdered By: [place] Aly on 04-09-2023 Erythrocyte distribution width (RBC) [Entitic vol] 44.9 fL 35.1-43.9 [facility] Erythrocyte distribution width (RBC) [Ratio] 12.5 % 11.6-14.6 [facility] Immature granulocytes/100 WBC (Bld) 0.200 % 0.0-0.9 [facility] Comment on above: IG% - Immature Granu locytes (promyelocytes, myelocytes and metamyelocytes) > 1% indicates that a LEFT SHIFT is Present. MCH (RBC) [Entitic mass] 31.1 pg 27.0-32.0 [facility] Nucleated RBC/100 WBC (Bld) [Ratio] 0 % 0-5 [facility] MCHC Auto (RBC) [Mass/Vol]Or dered By: [place] Aly on 04-09-2023 MCHC (RBC) [Mass/Vol] 32.1 g/dL 32-36 [facility] No Panel InformationOrdered By: [place] Aly on 04-09-2023 Estimated GFR (MDRD) Amer 100 mL/min >60 [facility] Comment on above: GFR Calc Estimated GFR (MDRD) Non-Af Amer 82 mL/min >60 [facility] Comment on above: Non- GFR Calc Thyroid Stimulating Hormone (TSH) 2.10 uIU/mL 0.358-3.74 [facility] Vitamin D 25-Hydroxy 52.3 ng/mL [facility] Comment on above: Vitamin D 25(OH) Sta tus Range Deficiency <20 ng/mL (50nmol/L) Insufficiency 20 - 30 ng/mL (50 - 75 nmol/L) Sufficiency 30 - 100 ng/mL (75 - 250 nmol/L) Toxicity >100 ng/mL (>250 nmol/L) Platelets bldOrdered By: Montana Aly on 04-09-2023 Platelets (Bld) [#/Vol] 373 10*3/uL 150-450 [facility] Serum or plasma albumin rowena urement (mass/volume)Ordered By: [place] Aly on 04-09-2023 Albumin [Mass/Vol] 3.6 g/dL 3.2-5.0 [facility] Serum or plasma albumin/glob ulin mass ratioOrdered By: [place] Aly on 04-09-2023 Albumin/Globulin [Mass ratio] 0.9 {ratio} 0.9-2.4 [facility] Serum or plasma calcium rowena urement (mass/volume)Ordered By: [place] Aly on 04-09-2023 Calcium [Mass/Vol] 9.0 mg/dL 8.5-10.1 [facility] Serum or plasma creatinine m easurement (mass/volume)Ordered By: Montana Jermain on 04-09-2023 Creatinine [Mass/Vol] 0.74 mg/dL 0.55-1.02 [facility] Comment on above: The validity of the calculated GFR & GFRAA in patients over 70 years has not been determined. Clinical correlation is essential. Serum or plasma urea nitroge n measurement (mass/volume)Ordered By: [place] Aly on 04-09-2023 Urea nitrogen [Mass/Vol] 19 mg/dL 7-18 [facility] Thin prep Papanicolaou smear with manual screeningOrdered By: [place] Aly on 04-09-2023 Thin prep Papanicolaou smear with manual screening 16 U/L 15-37 [facility] Thin prep Papanicolaou smear with manual screening 5 5-15 [facility] Absolute lymphocyte counton 04-01-2022 Lymphocytes Auto (Unsp spec) [#/Vol] 3.29 10*3/uL 0.83-4.51 [facility] Work Phone: Basophil percentageon 2021 Basophils/100 WBC (Bld) 0.4 % 0-1 [facility] Work Phone: Bilirubin [Mass/Vol] 0.40 mg/dL 0.20-1.00 [facility] Work Phone: Comment on above: For patients on eltr ombopag therapy, use of Dimension [place] TBIL is not recommended. Chloride [Moles/Vol] 105 mmol/L 98-107 [facility] Work Phone: Eosinophils/100 WBC (Bld) 2.1 % 0-5 [facility] Work Phone: Glucose [Mass/Vol] 91 mg/dL 74-106 [facility] Work Phone: Neutrophils (Bld) [#/Vol] 4.0 10*3/uL 2.0-7.7 [facility] Work Phone: Neutrophils/100 WBC (Bld) 49.2 % 47-70 [facility] Work Phone: Potassium [Moles/Vol] 3.9 mmol/L 3.5-5.1 [facility]: Protein [Mass/Vol] 7.5 g/dL 6.4-8.2 [facility] Work Phone: Sodium [Moles/Vol] 140 mmol/L 136-145 [facility] Work Phone: WBC (Bld) [#/Vol] 8.2 10*3/uL 4.4-11.0 [facility] Work Phone: Blood erythrocytes count (nu mber/volume)on 04-01-2022 RBC (Bld) [#/Vol] 4.33 10*6/uL 4.2-5.4 [facility] Work Phone: Blood hemoglobin measurement (mass/volume)on 04-01-2022 Hemoglobin (Bld) [Mass/Vol] 13.4 g/dL 12.0-15.0 [facility] Work Phone: Blood lymphocytes/100 leukoc yteson 04-01-2022 Lymphocytes/100 WBC (Bld) 40.2 % 19-41 [facility] Work Phone: Blood monocytes/100 leukocyt eson 04-01-2022 Monocytes/100 WBC (Bld) 7.9 % 0-10 [facility] Work Phone: Blood platelet mean volumeon 04-01-2022 Platelet mean volume (Bld) [Entitic vol] 9.4 fL 6.2-12.0 [facility] Work Phone: Determination of erythrocyte mean corpuscular volume (MCV)on 04-01-2022 MCV (RBC) [Entitic vol] 94.9 fL 81-99 [facility] Work Phone: Hematocrit Auto (Bld) [Volum e fraction]on 04-01-2022 Hematocrit (Bld) [Volume fraction] 41.1 % 37-47 [facility] Work Phone: Laboratory - Chemistry and C hemistry - challengeon 04-01-2022 ALP [Catalytic activity/Vol] 62 U/L 45-117 [facility] Work Phone: ALT [Catalytic activity/Vol] 29 U/L 13-56 [facility] Work Phone: CO2 [Moles/Vol] 27.0 mmol/L 21.0-32.0 [facility] Work Phone: Globulin (S) [Mass/Vol] 4.0 g/dL 2.2-4.2 [facility] Work Phone: Urea nitrogen/Creatinine [Mass ratio] 32.9 mg/mg 10-20 [facility] Work Phone: Laboratory - Hematology and Cell countson 04-01-2022 Erythrocyte distribution width (RBC) [Entitic vol] 45.0 fL 35.1-43.9 [facility] Work Phone: Erythrocyte distribution width (RBC) [Ratio] 12.8 % 11.6-14.6 [facility] Work Phone: Immature granulocytes/100 WBC (Bld) 0.200 % 0.0-0.9 [facility] Work Phone: Comment on above: IG% - Immature Granu locytes (promyelocytes, myelocytes and metamyelocytes) > 1% indicates that a LEFT SHIFT is Present. MCH (RBC) [Entitic mass] 30.9 pg 27.0-32.0 [facility] Work Phone: Nucleated RBC/100 WBC (Bld) [Ratio] 0 % 0-5 [facility] Work Phone: MCHC Auto (RBC) [Mass/Vol]on 04-01-2022 MCHC (RBC) [Mass/Vol] 32.6 g/dL 32-36 [facility] Work Phone: No Panel Informationon 04-01 Estimated GFR (MDRD) Amer 125 mL/min >60 [facility] Work Phone: Comment on above: GFR Calc Estimated GFR (MDRD) Non-Af Amer 103 mL/min >60 [facility] Work Phone: Comment on above: Non- GFR Calc Thyroid Stimulating Hormone (TSH) 4.69 uIU/mL 0.358-3.74 [facility] Work Phone: Vitamin D 25-Hydroxy 37.6 ng/mL [facility] Work Phone: Comment on above: Vitamin D 25(OH) Sta tus Range Deficiency <20 ng/mL (50nmol/L) Insufficiency 20 - 30 ng/mL (50 - 75 nmol/L) Sufficiency 30 - 100 ng/mL (75 - 250 nmol/L) Toxicity >100 ng/mL (>250 nmol/L) Platelets bldon 04-01-2022 Platelets (Bld) [#/Vol] 387 10*3/uL 150-450 [facility] Work Phone: Serum or plasma albumin rowena urement (mass/volume)on 04-01-2022 Albumin [Mass/Vol] 3.5 g/dL 3.2-5.0 [facility] Work Phone: Serum or plasma albumin/glob ulin mass ratioon 04-01-2022 Albumin/Globulin [Mass ratio] 0.9 {ratio} 0.9-2.4 [facility] Work Phone: Serum or plasma calcium rowena urement (mass/volume)on 04-01-2022 Calcium [Mass/Vol] 8.4 mg/dL 8.5-10.1 [facility] Work Phone: Serum or plasma creatinine m easurement (mass/volume)on 04-01-2022 Creatinine [Mass/Vol] 0.61 mg/dL 0.55-1.02 [facility] Work Phone: Comment on above: The validity of the calculated GFR & GFRAA in patients over 70 years has not been determined. Clinical correlation is essential. Serum or plasma urea nitroge n measurement (mass/volume)on 04-01-2022 Urea nitrogen [Mass/Vol] 20 mg/dL 7-18 [facility] Work Phone: Thin prep Papanicolaou smear with manual screeningon 04-01-2022 Thin prep Papanicolaou smear with manual screening 14 U/L 15-37 [facility] Work Phone: Thin prep Papanicolaou smear with manual screening 8 5-15 [facility] Work Phone: Laboratory - Microbiology an d Antimicrobial susceptibilityon 02-14-2022 SARS-CoV-2 (COVID-19) RNA SANDY+probe Ql (Unsp spec) Not detected Not Detect [facility] Work Phone: Comment on above: Normal [...] Influenza Types A,B Direct FA (MARQUISE) [facility] Work Phone: Vital Signs Date Time Vital Sign Value Performing Clinician Aiyana cha 12-29-2024 15:10-0400 Body height 175.[address] [place] Aly MD Work Phone: [facility] 12-29-2024 15:10-0400 Body mass index (BMI) [Ratio] 21.7 kg/m2 Dr. [place] Aly MD Work Phone: [facility] 12-29-2024 15:10-0400 Body temperature 97.4 [degF] Dr. [place] Aly MD Work Phone: [facility] 12-29-2024 15:10-0400 Body weight 66.[address] [place] Aly MD Work Phone: [facility] 12-29-2024 15:10-0400 Diastolic blood pressure 72 mm[Hg] Dr. Montana Aly MD Work Phone: [facility] 12-29-2024 15:10-0400 Heart rate 82 /min Dr. [place] Aly MD Work Phone: [facility] 12-29-2024 15:10-0400 Respiratory rate 18 /min Dr. Montana Aly MD Work Phone: [facility] 12-29-2024 15:10-0400 SaO2% (BldA) [Mass fraction] 98 % Dr. Montana Aly MD Work Phone: [facility] 12-29-2024 15:10-0400 Systolic blood pressure 125 mm[Hg] Dr. Montana Aly MD Work Phone: [facility] Encounters Encounter Date Encounter Type Care Provider Facility Start: 12-29-2024 End: 12-29-2024 Emergency department patient visit Dr. [place] Aly MD Work Phone: -Emergency Department Work Phone: Start: 04-09-2023 End: 04-09-[address] [facility] Work Phone: Start: 04-09-2023 End: 04-09-[address] [facility]-Laboratory, Phy Office 3rd Flr Start: 04-01-2022 End: 04-01-[address] [facility] Work Phone: Start: 04-01-2022 End: 04-01-[address] [facility]Labor[facility], Phy Office 3rd Flr Start: 02-14-2022 End: 02-14-[address] [facility] Work Phone: Start: 02-14-2022 End: 02-14-[address] [facility]Pulmonary Services/Neurology Start: 02-06-2022 End: 02-06-[address] [facility]Radiology, [facility] Procedures Date Procedure Procedure Detail Performing Clinician Start: 02-06-2022 Radiologic examinati on of knee Influenza Types A,B Direct FA (MARQUISE) Respiratory syncytia l virus antigen assay Plan of Treatment Date Care Activity Detail Author Start: 12-29-2024 [facility] Patient Education ED Laceration, All Closures [facility] Work Phone: Immunizations Immunization Date Immunization Notes Care Provider Fa cility 12-29-2024 tetanus toxoid, redu ken diphtheria toxoid, and acellular pertussis vaccine, adsorbed Dr. Montana Aly MD Work Phone: [facility] 03-01-2016 tetanus toxoid, redu ken diphtheria toxoid, and acellular pertussis vaccine, adsorbed [facility] Payers Date Payer Category Payer Self-pay [id number] 2024 Unknown [id number] [facility] [id number] 2015 Medicare [id number] Unknown [id number] Social History Date Type Detail Facility Start: 04-02-2020 End: 04-02-2020 Tobacco smoking status NHIS Unknown if ever smoked [facility] Start: 04-02-2020 None [facility] Start: 04-02-2020 Spouse/ Signif icant Other [facility] Start: 1950 Sex Assigned At Female [facility] Start: 12-29-2024 Tobacco smoking status NHIS Ex-smoker (finding) [facility] Discharge instructions 12-29-2024 Note Date & Type [...] prevent infection. First dose given here. [facility] Work Phone: Evaluation note Note Date & Type Note Facility Evaluation note No assessment information availa ble [facility] Work Phone: Reason for referral (narrative) Note Date & Type Note Facility Reason for referral (narrative) No reason for referral information available [facility] Work Phone: Chief Complaint and Reason [...] Will No April 02 6:04pm Power of Snow Blower No April 02, 2020 6:04pm Advance Directive Response Recorded Date/ Time Living Will No April 02 5:04pm Power of Snow Blower No April 02, 2020 5:04pm Advance Directive Response Recorded Date/ Time Do you have a Healthcare Power of Snow Blower? No December 29, 2024 5:46pm Summary Purpose [...] section and content) DATE CREATED AUTHOR 01/06/2025 [facility] FOR RECORDS PERTAINING TO PATIENTS WHO [...] BE BASED ON THE PRIMARY CLINICAL RECORDS. [facility]. provides no warranty or guarantee of the accuracy or completeness of information in this document.
== END | disposition home or self-care (01) ==
LOC: US 07:49
PROVIDERS: PCP Family Medicine Geriatric Medicine; Referring Provider Family Medicine Geriatric Medicine; Visit Provider Family Medicine Geriatric Medicine
DX: B18.0 Chronic viral hepatitis B with delta-agent (principal)
CPT/HCPCS: 76705